=== PATIENT | female | born 1965 | race Caucasian/White ===

== ENCOUNTER → 2018-06-28 08:15 | Outpatient (CLI) | payer BC, SELFPAY ==
--- NOTE | 2018-06-28 08:19 | MM_ITS ---
MM Dig screening mamm BI w/CAD ORDERING PHYSICIAN : Ruth Garcia PATIENT AGE: 53 years GENDER: Female COMPARISON: June 2011, December 2013, August 2016 bilateral mammogram INDICATION: Routine SCREENING mammogram. 53-year-old. No hormones. No new complaints Previous left lumpectomy-history sheet suggest 2005 TECHNIQUE: Standard CC and MLO images were obtained. R2 CAD reviewed. FINDINGS: Low-density breast with minimal residual fibroglandular elements & noting progressive fatty replacement particularly e. However I see no significant new findings. No dominant mass nor suspicious calcifications RIGHT BREAST:No new areas of concern LEFT BREAST:No new areas of significant concern. The prominent dense calcification at the inferior deep left breast is again noted from the previous lumpectomy. There is measuring up to nearly 20 mm x 6.5 mm and basically unchanged since recent years comparison studies.. IMPRESSION: ......... Stable bilateral mammogram. No significant new findings. Stable dense calcification at the previous lumpectomy site at the left breast again noted BI-RADS Category: 2 Benign Finding(s) RECOMMENDED FOLLOW-UP: 1YR 1 YEAR FOLLOW-UP (A letter has been sent to the patient regarding results of the study.)
[2018-06-28 09:57] LABS: Basophils % 0.5 % (0.1-2.0); Hematocrit 41.4 % (37.0-47.0); Hemoglobin 13.9 g/dL (12.2-16.2); Lymphocytes # 1.5 K/mm3 (0.7-4.5); Mean Corpuscular HGB Conc 33.5 g/dL (31.8-35.4); Mean Corpuscular Hemoglobin 32.3 pg (27.0-31.2); Mean Corpuscular Volume 96.4 fl (81-99); Mean Platelet Volume 10.1 fl (7.4-10.4); Monocytes # 0.2 K/mm3 (0.1-1.0); Neutrophils % 53.4 % (37.0-80.0); Platelet Count 173 K/mm3 (142-424); Red Blood Count 4.29 M/mm3 (4.20-5.40); Red Cell Distribution Width 12.9 % (11.5-17.5); White Blood Count 3.8 K/mm3 (4.8-10.8)
[2018-06-28 11:41] LABS: Alanine Aminotransferase 43 U/L (12-78); Albumin Level 3.9 gm/dL (3.4-5.0); Albumin/Globulin Ratio 1.2 (1.1-1.8); Alkaline Phosphatase 104 U/L (46-116); Aspartate Amino Transferase 28 U/L (15-37); Bilirubin,Total 0.5 mg/dL (0.2-1.0); Blood Urea Nitrogen 10 mg/dL (7-18); Calcium 9.9 mg/dL (8.5-10.1); Carbon Dioxide 30 mmol/L (21.0-32.0); Chloride 104 mmol/L (98-107); Chol/HDL Ratio 2.7 (1-3.5); Cholesterol 268 mg/dL (140-200); Creatinine,Serum 0.67 mg/dL (0.55-1.02); Estimated Glomerular Filt Rate 92 ml/min (>60); GFR (African American) 111 ML/MIN (>60); Globulin 3.2 gm/dl (1.3-3.2); Glucose 101 mg/dL (74-106); HDL Cholesterol 100 mg/dL (29-89); LDL Cholesterol 151 mg/dL (0-130); Sodium 143 mmol/L (136-145); Thyroid Stimulating Hormone 2.29 uIU/ml (0.358-3.740); Total Protein,Serum 7.1 gm/dL (6.4-8.2); Triglycerides 83 mg/dL (30-200); VLDL Cholesterol 17 mg/dL (0-40)
[2018-06-30 03:45] LABS: Vitamin B12 256 pg/mL (232-1245); Vitamin D 25 Hydroxy 25.1 ng/mL (30.0-100.0)
== END ==
PROVIDERS: PCP Nurse Practitioner Family; Visit Provider Nurse Practitioner Family
DX: Z00.00 Encounter for general adult medical examination without abnormal findings (principal); Z12.31 Encounter for screening mammogram for malignant neoplasm of breast
CPT/HCPCS: 36415; 77067; 80053; 80061; 82607; 82652; 84443; 85025

== ENCOUNTER → 2018-10-09 13:46 | Outpatient (POV) | payer BC, SELFPAY | PROVIDERS: Visit Provider Dermatology | DX: Z00.00 Encounter for general adult medical examination without abnormal findings (principal) ==

== ENCOUNTER → 2019-11-05 08:12 | Outpatient (POV) | payer BC, SELFPAY | PROVIDERS: PCP Family Medicine; Visit Provider Dermatology | DX: Z00.00 Encounter for general adult medical examination without abnormal findings (principal) ==

== ENCOUNTER 2019-12-25 06:53 | Emergency (ER) | payer BC, SELFPAY ==
[2019-12-25 06:58] VITALS: BP 177/85; PULSE 86; RESP 16; TEMP 36.7; O2SAT 97; BMI 28.1
[2019-12-25 07:19] LABS: Microscopic, Urine URINE MICROSCOPIC (MICROSCOPIC)
[2019-12-25 07:22] LABS: Appearance,Urine CLEAR (Clear); Blood, Urine Negative (Negative); Color,Urine DK YELLOW (Yellow); Glucose,Urine (UA) Negative (Negative); Ketones,Urine Negative (Negative); Leukocyte Esterase,Urine TRACE (Negative); Nitrate,Urine Negative (Negative); PH,Urine 6.5 (5.0-8.5); Protein,Urine Negative (Negative); Urobilinogen,Urine 0.2 EU/dl (0.2)
[2019-12-25 07:34] LABS: Bilirubin,Urine Negative (Negative)
--- NOTE | 2019-12-25 07:39 | CT_ITS ---
PROCEDURE: CT ABDOMEN PELVIS W CON CLINICAL INDICATION: n/v/d Abdominal pain with nausea vomiting and diarrhea COMPARISON: [facility] MM Dig screening mamm BI w/CAD from 06/28/2018 TECHNIQUE: IV Contrast: 75ML OPTIRAY 350 Oral Contrast None Axial images obtained with sagittal and coronal reformats. All CT scans at the facility use one or more dose reduction, viz: automated exposure control, ma/kV adjustment per patient size (including targeted exams where dose is matched to indication, i.e. head), or iterative reconstruction technique. FINDINGS: LOWER THORAX: There is dense calcification in the left breast curvilinear in nature ABDOMEN & PELVIS: Prior cholecystectomy. Mild biliary ectasia. The spleen, adrenal glands, and pancreas have an unremarkable appearance. There is mild ectasia of the ureters on both sides but no obvious ureteral calculi. No calculi evident within the urinary bladder. Unremarkable appendix. No intestinal obstruction or free air. No pelvic mass abnormal fluid collection or focal inflammatory change of the pelvis. There is mild thickening of the colon involving the ascending, transverse, and proximal descending colon. This is nonspecific and could be due to colitis or nondistention. No acute bony findings. There is mild degenerative disc disease at L5-S1 with partially calcified bulging disc. IMPRESSION: 1. Mild thickening of the ascending and transverse and proximal descending colon which could be due to nondistention or colitis. 2. Minimal ectasia of the ureters on both sides of questionable clinical significance. Dictated by: Tra Christina MD 12/25/2019 08:45 Tra Christina MD in [place] 12/25/2019 08:45
[2019-12-25 07:49] LABS: Bacteria,Urine 1+ /lpf
[2019-12-25 07:52] LABS: Chloride 103 mmol/L (98-107)
[2019-12-25 07:53] LABS: Sodium 142 mmol/L (136-145)
[2019-12-25 07:54] LABS: Basophils % 0.3 % (0.1-2.0); Eosinophils % 0.4 % (0.1-12.0); Hematocrit 43.8 % (37.0-47.0); Hemoglobin 15.3 g/dL (12.2-16.2); Lymphocytes # 1.4 K/mm3 (0.7-4.5); Lymphocytes % 17.9 % (10-50); Mean Corpuscular HGB Conc 34.9 g/dL (31.8-35.4); Mean Corpuscular Hemoglobin 32.8 pg (27.0-31.2); Mean Corpuscular Volume 94.1 fl (81-99); Mean Platelet Volume 9.9 fl (7.4-10.4); Monocytes # 0.3 K/mm3 (0.1-1.0); Monocytes % 3.6 % (1.7-9.3); Neutrophils # 6.2 K/mm3 (1.8-7.8); Neutrophils % 77.9 % (37.0-80.0); Platelet Count 172 K/mm3 (142-424); Red Blood Count 4.65 M/mm3 (4.20-5.40); Red Cell Distribution Width 12.8 % (11.5-17.5); White Blood Count 7.9 K/mm3 (4.8-10.8)
[2019-12-25 07:55] LABS: Alanine Aminotransferase 34 U/L (12-78); Alkaline Phosphatase 92 U/L (38-126); Aspartate Amino Transferase 45 U/L (14-36); Blood Urea Nitrogen 10 mg/dl (7-17); Creatinine Clearance Estimated 107 mL/min (50-200); Estimated Glomerular Filt Rate 87 ml/min (>60); GFR (African American) 105 ML/MIN (>60)
[2019-12-25 07:56] LABS: Albumin Level 4.7 g/dl (3.5-5.0); Albumin/Globulin Ratio 1.5 (1.1-1.8); Calcium 10.3 mg/dl (8.4-10.2); Carbon Dioxide 30 mmol/L (22.0-30.0); Globulin 3.2 g/dL (1.3-3.2); Glucose 135 mg/dl (74-100); Total Protein,Serum 7.9 g/dl (6.3-8.2)
[2019-12-25 07:58] VITALS: BP 172/71; PULSE 81; O2SAT 100
[2019-12-25 08:02] LABS: C-Reactive Protein 0.5 mg/L (0-4)
--- NOTE | 2019-12-25 08:06 | HMH.EDGENADL ---
ED Disposition Clinical Impression: Hypokalemia Sinusitis Qualifiers: Sinusitis location: unspecified location Chronicity: acute Recurrence: not specified as recurrent Qualified Code(s): J01.90 - Acute sinusitis, unspecified Urinary tract infection Qualifiers: Urinary tract infection type: acute cystitis Hematuria presence: without hematuria Qualified Code(s): N30.00 - Acute cystitis without hematuria Nausea and vomiting Qualifiers: Vomiting type: unspecified Vomiting Intractability: non-intractable Qualified Code(s): R11.2 - Nausea with vomiting, unspecified Diarrhea Qualifiers: Diarrhea type: unspecified type Qualified Code(s): R19.7 - Diarrhea, unspecified Disposition: Home, Self-Care Condition on Discharge: Good Instructions: DI for Diarrhea and Traveler's Diarrhea -- Adult, DI for Diarrhea and Traveler's Diarrhea -- Child, DI for Nausea -- Adult, DI for Nausea -- Child Prescriptions: Cefdinir [Omnicef 300mg Capsule] 300 mg PO BID #20 cap Transmission Status: Pending to [facility] #[id number] Ondansetron [Zofran 4mg ODT] 4 mg PO Q6 PRN #9 tab.rapdis PRN Reason: Nausea Referrals: Jerod Scott MD [Primary Care Provider] - - Critical Care Critical Care Time: No Attestation: On 12/25/19, the high probability of a clinically significant, sudden or life threatening deterioration of the following system(s) required my full and direct attention, intervention and personal management. The time I documented below is in addition to time spent performing reported procedures but includes the following listed in this critical care notation. Medical Decision Making - Medical Records Medical records reviewed: Yes: I reviewed the patient's medical records. - Dave Inquiry Pt receiving controlled substance: No Vital Signs: 12/25/19 06:58 12/25/19 07:58 12/25/19 08:51 Temperature 98.1 F Temperature Source Oral Pulse Rate [Right Brachial] 86 841 H 88 Respiratory Rate 16 20 Blood Pressure [Right Arm] 177/85 H 172/71 H 156/90 H Blood Pressure Mean [Right Arm] 115 104 112 Blood Pressure Source [Right Arm] Automatic Cuff Automatic Cuff Automatic Cuff Blood Pressure Position [Right Arm] Sitting Sitting Sitting 02 Sat by Pulse Oximetry 97 100 98 Oxygen Delivery Method Room Air Room Air - Lab Data Lab Results 12/25/19 07:05: Urine Color Dk yellow, Urine Appearance Clear, Urine pH 6.5, Ur Specific [place] 1.020, Urine Protein Negative, Urine Glucose (UA) Negative, Urine Ketones Negative, Urine Blood Negative, Urine Nitrate Negative, Urine Bilirubin Negative, Urine Urobilinogen 0.2, Ur Leukocyte Esterase Trace, Urine RBC 3-5, Urine WBC 5-10, Ur Squamous Epith Cells 5-10, Urine Bacteria 1+ 12/25/19 07:15: WBC 7.9, RBC 4.65, Hgb 15.3, Hct 43.8, MCV 94.1, MCH 32.8 H, MCHC 34.9, RDW 12.8, Plt Count 172, MPV 9.9, Neut % (Auto) 77.9, Lymph % (Auto) 17.9, [place] % (Auto) 3.6, Eos % (Auto) 0.4, Baso % (Auto) 0.3, Neut # (Auto) 6.2, Lymph # (Auto) 1.4, [place] # (Auto) 0.3, Eos # (Auto) 0.0, Baso # (Auto) 0.0 12/25/19 07:15: Sodium 142, Potassium 3.0 L, Chloride 103, Carbon Dioxide 30, Anion Gap 12.0, BUN 10, Creatinine 0.70, Estimated Creat Clear 107, Estimated GFR 87, Est GFR ( Amer) 105, Glucose 135 H, Calcium 10.3 H, Total Bilirubin 1.0, AST 45 H, ALT 34, Alkaline Phosphatase 92, C-Reactive Protein 0.5, Total Protein 7.9, Albumin 4.7, Globulin 3.2, Albumin/Globulin Ratio 1.5 12/25/19 07:15: Influenza Type A Ag Negative, Influenza Type B Ag Negative 12/25/19 07:15: Group A Strep Rapid Negative 12/25/19 07:15: Lipase 133 Result diagrams: 12/25/19 07:15 12/25/19 07:15 Orders (Tests/Meds): ED MEDICATIONS Discontinued Medications Generic Name Dose Route Start Last Admin Trade Name Freq PRN Reason Stop Dose Admin Acetaminophen 1,000 mg 12/25/19 07:49 12/25/19 08:03 Tylenol 500mg Tablet PO 12/25/19 07:50 1,000 mg ONCE ONE Administration Sodium Chloride 1,000 mls @ 999 mls/hr
[2019-12-25 08:17] LABS: Strep Scrn Group A (Rapid) Negative (Negative)
[2019-12-25 08:51] VITALS: BP 156/90; PULSE 88; RESP 20; O2SAT 98
--- NOTE | 2019-12-25 08:59 | PC.NURSE ---
pt ambulating to the bathroom
[2019-12-25 09:02] LABS: Lipase 133 U/L (23-300)
[2019-12-25 09:21] VITALS: BP 156/90; PULSE 88; RESP 15; TEMP 36.7; O2SAT 98
== END 2019-12-25 09:27 | disposition home or self-care (01) ==
PROVIDERS: Emergency Provider Emergency Medicine; PCP Family Medicine
DX: K52.9 Noninfective gastroenteritis and colitis, unspecified (principal); E87.6 Hypokalemia; J01.00 Acute maxillary sinusitis, unspecified; N30.00 Acute cystitis without hematuria
CPT/HCPCS: 74177; 80053; 81001; 83690; 85025; 86140; 87275; 87276; 87430; 96365; 96375; 99284; J2405; Q9967

== ENCOUNTER 2019-12-26 10:32 | Observation (INO) | payer BC, SELFPAY ==
[2019-12-26] VITALS (8 sets, daily range): BP systolic 134–186; BP diastolic 69–97; PULSE 64–102; RESP 17–20; TEMP 36.6–37.1; O2SAT 93–100; BMI 28.3; BMI 29.2
[2019-12-26 10:54] LABS: Basophils % 0.4 % (0.1-2.0); Eosinophils % 0.4 % (0.1-12.0); Hematocrit 43.3 % (37.0-47.0); Hemoglobin 14.9 g/dL (12.2-16.2); Lymphocytes # 1.2 K/mm3 (0.7-4.5); Lymphocytes % 15.6 % (10-50); Mean Corpuscular HGB Conc 34.3 g/dL (31.8-35.4); Mean Corpuscular Hemoglobin 32.8 pg (27.0-31.2); Mean Corpuscular Volume 95.8 fl (81-99); Monocytes # 0.2 K/mm3 (0.1-1.0); Monocytes % 2.9 % (1.7-9.3); Neutrophils # 6.4 K/mm3 (1.8-7.8); Neutrophils % 80.8 % (37.0-80.0); Platelet Count 150 K/mm3 (142-424); Red Blood Count 4.53 M/mm3 (4.20-5.40); Red Cell Distribution Width 12.7 % (11.5-17.5)
[2019-12-26 11:06] LABS: Alanine Aminotransferase 41 U/L (12-78); Albumin Level 4.8 g/dl (3.5-5.0); Albumin/Globulin Ratio 1.5 (1.1-1.8); Alkaline Phosphatase 106 U/L (38-126); Anion Gap 12.4 mEq/L (5-15); Aspartate Amino Transferase 57 U/L (14-36); Bilirubin,Total 0.9 mg/dl (0.2-1.3); Blood Urea Nitrogen 14 mg/dl (7-17); Calcium 10.7 mg/dl (8.4-10.2); Carbon Dioxide 30 mmol/L (22.0-30.0); Chloride 102 mmol/L (98-107); Creatinine Clearance Estimated 83 mL/min (50-200); Estimated Glomerular Filt Rate 65 ml/min (>60); GFR (African American) 79 ML/MIN (>60); Globulin 3.1 g/dL (1.3-3.2); Glucose 105 mg/dl (74-100); Potassium 3.4 mmoL/L (3.5-5.1); Sodium 141 mmol/L (136-145); Total Protein,Serum 7.9 g/dl (6.3-8.2)
[2019-12-26 11:47] LABS: Lactic Acid 0.7 mmol/L (0.7-2.1)
[2019-12-26 11:53] LABS: Coronavirus 19 IgG Antibody Negative (Negative); Coronavirus 19 IgM Antibody Negative (Negative)
--- NOTE | 2019-12-26 12:07 | HMH.EDNVD ---
ED Disposition Clinical Impression: Gastroenteritis, Dehydration, Intractable nausea and vomiting, Hypokalemia due to excessive gastrointestinal loss of potassium Disposition: Admitted as Observation Condition on Discharge: Good Instructions: DI for Nausea -- Adult, DI for Nausea -- Child, DI for Diarrhea and Traveler's Diarrhea -- Adult, DI for Diarrhea and Traveler's Diarrhea -- Child Referrals: Bebo Coughlin MD [Primary Care Provider] - - Critical Care Critical Care Time: No Attestation: On 12/26/19, the high probability of a clinically significant, sudden or life threatening deterioration of the following system(s) required my full and direct attention, intervention and personal management. The time I documented below is in addition to time spent performing reported procedures but includes the following listed in this critical care notation. Medical Decision Making - Medical Records Medical records reviewed: Yes: I reviewed the patient's medical records. - Dave Inquiry Pt receiving controlled substance: No Vital Signs: 12/26/19 10:41 12/26/19 11:01 Temperature 98.3 F Temperature Source Oral Pulse Rate [Radial] 102 H 91 H Respiratory Rate 20 Blood Pressure [Right Arm] 186/97 H 185/84 H Blood Pressure Mean [Right Arm] 126 117 Blood Pressure Source [Right Arm] Automatic Cuff Automatic Cuff Blood Pressure Position [Right Arm] Sitting Sitting 02 Sat by Pulse Oximetry 100 99 Oxygen Delivery Method Room Air Room Air - Lab Data Lab results reviewed: Yes: I reviewed the patient's lab results. Lab Results 12/26/19 10:15: SARS-CoV-2 IgG Ab (Rapid) Negative, SARS-CoV-2 IgM Ab (Rapid) Negative 12/26/19 10:50: WBC 8.0, RBC 4.53, Hgb 14.9, Hct 43.3, MCV 95.8, MCH 32.8 H, MCHC 34.3, RDW 12.7, Plt Count 150, MPV 10.0, Neut % (Auto) 80.8 H, Lymph % (Auto) 15.6, [place] % (Auto) 2.9, Eos % (Auto) 0.4, Baso % (Auto) 0.4, Neut # (Auto) 6.4, Lymph # (Auto) 1.2, [place] # (Auto) 0.2, Eos # (Auto) 0.0, Baso # (Auto) 0.0 12/26/19 10:50: Sodium 141, Potassium 3.4 L, Chloride 102, Carbon Dioxide 30, Anion Gap 12.4, BUN 14 D, Creatinine 0.90 D, Estimated Creat Clear 83, Estimated GFR 65, Est GFR ( Amer) 79 D, Glucose 105 H, Calcium 10.7 H, Total Bilirubin 0.9, AST 57 H D, ALT 41, Alkaline Phosphatase 106, Total Protein 7.9, Albumin 4.8, Globulin 3.1, Albumin/Globulin Ratio 1.5 12/26/19 11:20: Lactate 0.7 Result diagrams: 12/26/19 10:50 12/26/19 10:50 Orders (Tests/Meds): ED MEDICATIONS Discontinued Medications Generic Name Dose Route Start Last Admin Trade Name Jayda PRN Reason Stop Dose Admin Hydromorphone HCl 0.5 mg 12/26/19 11:24 12/26/19 11:24 Dilaudid 2mg/Ml Syringe IV 12/26/19 11:25 0.5 mg ONCE ONE Administration Sodium Chloride 1,000 mls @ 999 mls/hr 12/26/19 11:00 12/26/19 10:53 Sod Chlor 0.9% 1000ml Bag IV 12/26/19 12:00 999 mls/hr .Q1H1M DONNIE Administration Ondansetron HCl 4 mg 12/26/19 10:51 12/26/19 10:52 Zofran 4mg/2ml Vial IV 12/26/19 10:52 4 mg ONCE ONE Administration Medical Decision Narrative: Over the course of her visit here in the emergency department patient's symptoms did improve with IV antiemetics and IV fluids. Laboratory data looks better than yesterday. Her potassium was 3.0 yesterday today at 3.4. Patient was also diagnosed hypokalemia yesterday as well. I did speak with Dr. Coughlin he agreed for admission for at least a few hours or maybe overnight for fluid hydration and antiemetic therapy. Nausea/Vomiting/Diarrhea HPI - General Chief complaint: Nausea/Vomiting/Diarrhea Stated complaint: abdominal pain vomitting diarrhea Time Seen by Provider: 12/26/19 12:08 Mode of Arrival: Ambulatory Limitations: No Limitations Description of Symptoms (Recalled from ER Triage Doc. by RN): States she was seen here in the ER yesterday for diarrhea, vomiting, and cramping. Was diagnosed with a sinus infection and kidney infection, however she states
[2019-12-26 12:41] LABS: Microscopic, Urine URINE MICROSCOPIC (MICROSCOPIC)
[2019-12-26 12:47] LABS: Appearance,Urine CLEAR (Clear); Bilirubin,Urine Negative (Negative); Blood, Urine Negative (Negative); Color,Urine YELLOW (Yellow); Glucose,Urine (UA) Negative (Negative); Ketones,Urine 1+ (Negative); Leukocyte Esterase,Urine TRACE (Negative); Nitrate,Urine Negative (Negative); PH,Urine 6.5 (5.0-8.5); Protein,Urine Negative (Negative); Urobilinogen,Urine 0.2 EU/dl (0.2)
--- NOTE | 2019-12-26 12:49 | PC.NURSE ---
Pt arrived to the floor at this time ,
[2019-12-26 12:58] LABS: Bacteria,Urine 1+ /lpf; RBC,Urine Occasional #/hpf (0-3)
--- NOTE | 2019-12-26 13:31 | P.CONPHA_ITS ---
[facility] Pharmacy VTE Monitoring - Patient Demographics Admission date: 12/26/19 Report Date: 12/26/19 Time: 13:32 Allergies/Adverse Reactions: Patient Allergies codeine Allergy (Verified 12/26/19 13:02) guaifenesin Allergy (Verified 12/26/19 13:02) Height: 1.63 m Weight: 77.383 kg Patient Problems: Current Active Problems Gastroenteritis (Acute) Dehydration (Acute) Intractable nausea and vomiting (Acute) Hypokalemia due to excessive gastrointestinal loss of potassium (Acute) - VTE Risk Labs: VTE Related Lab Results Hgb 14.9 g/dL (12.2-16.2) 12/26/19 10:50 Hct 43.3 % (37.0-47.0) 12/26/19 10:50 Plt Count 150 K/mm3 (142-424) 12/26/19 10:50 BUN 14 mg/dl (7-17) D 12/26/19 10:50 Creatinine 0.90 mg/dl (0.52-1.04) D 12/26/19 10:50 Estimated Creat Clear 83 mL/min (50-200) 12/26/19 10:50 Was VTE Risk Assessment Performed: Yes VTE Score: 2 VTE Risk Level: Very Low Risk - Prophylaxis VTE Prophylaxis Ordered?: Yes Types of VTE Prophylaxis: TEDS Knee High Location of Applied Device: Bilateral Lower Extremeties
--- NOTE | 2019-12-26 16:03 | HMH.HP ---
*Admission Date: 12/26/19 *Chief complaint: Nausea and diarrhea *History of present illness: 54-year-old female presented to the emergency department for the second time in about 24 hours with complaints of persistent nausea which is leading to retching and dry heaving with diarrhea. Onset of illness was December 21. Patient blames symptoms on the action of taking her medicines on an empty stomach. She claims she rarely does this but when she did this on Monday it immediately triggered onset of nausea and dry heaving. Patient later developed diarrhea and symptoms have now persisted for 4 days. She believes she has had fevers but has not checked. She denies any runny nose, sneezing, sore throat, loss of smell or taste, cough. She was seen in the emergency department yesterday with essentially normal work-up save for some very mild findings consistent with possible colitis. Patient was discharged to home. Patient returned to the emergency department late this morning after symptoms began intensifying. She has been admitted for observation with IV fluids and antiemetics. [facility] History I have reviewed the patient's past medical history: Yes Medical History: Reports:: Cancer (Breast), Hyperlipidemia Denies:: Diabetes Mellitus Type 1, Diabetes Mellitus Type 2, MRSA *Have you ever received a pneumonia vaccine?: No *Have you received a flu vaccine this season?: No Other Surgeries: Yes: Cancer Surgery, Cholecystectomy, Tubal Ligation Amputation: No Fractures: No - *Social History Last grade of school completed: 9th or 10th Smoking Status: Never smoker Alcohol Intake: current Alcohol Intake Frequency:: holidays/special occasions only *Occupational Status:: unemployed Housing: house Household Members: spouse *Travel in the last 8 weeks: None Family Hx:: Diabetes Review of Systems - Review of Systems Review of systems:: pertinent systems reviewed and negative unless documented below Meds Home Medications Medication Instructions Recorded Confirmed Type gabapentin 100 mg capsule 100 mg PO BID 04/02/19 12/26/19 History Ondansetron [Zofran 4mg ODT] 4 mg PO Q6 PRN #9 tab.rapdis 12/25/19 12/26/19 Rx Cefdinir [Omnicef 300mg Capsule] 300 mg PO BID 12/26/19 12/26/19 History Montelukast Sodium [Singulair] 10 mg PO PM 12/26/19 12/26/19 History Simvastatin [Zocor 10mg] 10 mg PO HS 12/26/19 12/26/19 History Allergies Allergy/AdvReac Type Severity Reaction Status Date / Time codeine Allergy Verified 12/26/19 13:02 guaifenesin Allergy Verified 12/26/19 13:02 Exam Vital signs and Labs for Last 24 Hours: Temp Pulse Resp BP Pulse Ox 98.2 F 69 18 157/78 H 100 12/26/19 13:00 12/26/19 13:00 12/26/19 13:00 12/26/19 13:00 12/26/19 13:00 Laboratory Results - last 24 hr 12/26/19 10:15: SARS-CoV-2 IgG Ab (Rapid) Negative, SARS-CoV-2 IgM Ab (Rapid) Negative 12/26/19 10:50: WBC 8.0, RBC 4.53, Hgb 14.9, Hct 43.3, MCV 95.8, MCH 32.8 H, MCHC 34.3, RDW 12.7, Plt Count 150, MPV 10.0, Neut % (Auto) 80.8 H, Lymph % (Auto) 15.6, [place] % (Auto) 2.9, Eos % (Auto) 0.4, Baso % (Auto) 0.4, Neut # (Auto) 6.4, Lymph # (Auto) 1.2, [place] # (Auto) 0.2, Eos # (Auto) 0.0, Baso # (Auto) 0.0 12/26/19 10:50: Sodium 141, Potassium 3.4 L, Chloride 102, Carbon Dioxide 30, Anion Gap 12.4, BUN 14 D, Creatinine 0.90 D, Estimated Creat Clear 83, Estimated GFR 65, Est GFR ( Amer) 79 D, Glucose 105 H, Calcium 10.7 H, Total Bilirubin 0.9, AST 57 H D, ALT 41, Alkaline Phosphatase 106, Total Protein 7.9, Albumin 4.8, Globulin 3.1, Albumin/Globulin Ratio 1.5 12/26/19 11:20: Lactate 0.7 12/26/19 12:30: Urine Color Yellow, Urine Appearance Clear, Urine pH 6.5, Ur Specific [place] 1.010, Urine Protein Negative, Urine Glucose (UA) Negative, Urine Ketones 1+, Urine Blood Negative, Urine Nitrate Negative, Urine Bilirubin Negative, Urine Urobilinogen 0.2, Ur Leukocyte Esterase Trace, Urine RBC Occasional, Ur Squamous Epith Cells 5-10, Urine Bacteria 1+
--- NOTE | 2019-12-26 16:15 | PC.NURSE ---
Pt was a new admit this shift from the ER. Pleasant and cooperative. A&O X4. No complaints of N/V/D since arrival to the unit around 1300. Pt complained of a headache and received Tylenol per MAR with favorable results. Lungs CTA. No edema noted. Skin is C/D/I. TEDDY hose in place to BLE. 20 G peripheral IV in place to the RT AC is patent and infusing NS @ 100 ML/HR. Pt ambulates independently to/from the bathroom and voids without issue. No BM thus far. VSS. Call light within reach. Will continue to monitor.
[2019-12-27 04:00] VITALS: BP 143/84; PULSE 60; RESP 18; TEMP 36.5; O2SAT 97
--- NOTE | 2019-12-27 04:38 | PC.NURSE ---
Addendum entered by Susana Hanna RN 12/27/19 05:02: pt did report a headache when she woke up this morning, treated per JUN Original Note: shift summary, pt has rested well t/o shift, reports one BM this shift that was more formed than previous BMs, no complaints of n/v
[2019-12-27 05:01] VITALS: BMI 29.4
--- NOTE | 2019-12-27 05:50 | PC.NURSE ---
Addendum entered by Susana Hanna RN 12/27/19 06:41: pt also reports that she has now thrown up Original Note: pt has reported another episode of loose stool and states she feels nauseous, pt treated per MAR
--- NOTE | 2019-12-27 07:02 | HMH.ACPN2 ---
Internal Medicine - PN: Subj *Date: 12/27/19 *Time: 07:02 Interval history: Patient did well overnight until this morning when she reported acute onset of nausea with an unwitnessed episode of vomiting and another loose stool. She did not have any fevers. This morning she reports her abdomen is sore . Exam Vital signs and Labs for Last 24 Hours: Temp Pulse Resp BP Pulse Ox 97.7 F 60 18 143/84 H 97 12/27/19 04:00 12/27/19 04:00 12/27/19 04:00 12/27/19 04:00 12/27/19 04:00 Laboratory Results - last 24 hr 12/26/19 10:15: SARS-CoV-2 IgG Ab (Rapid) Negative, SARS-CoV-2 IgM Ab (Rapid) Negative 12/26/19 10:50: WBC 8.0, RBC 4.53, Hgb 14.9, Hct 43.3, MCV 95.8, MCH 32.8 H, MCHC 34.3, RDW 12.7, Plt Count 150, MPV 10.0, Neut % (Auto) 80.8 H, Lymph % (Auto) 15.6, [place] % (Auto) 2.9, Eos % (Auto) 0.4, Baso % (Auto) 0.4, Neut # (Auto) 6.4, Lymph # (Auto) 1.2, [place] # (Auto) 0.2, Eos # (Auto) 0.0, Baso # (Auto) 0.0 12/26/19 10:50: Sodium 141, Potassium 3.4 L, Chloride 102, Carbon Dioxide 30, Anion Gap 12.4, BUN 14 D, Creatinine 0.90 D, Estimated Creat Clear 83, Estimated GFR 65, Est GFR ( Amer) 79 D, Glucose 105 H, Calcium 10.7 H, Total Bilirubin 0.9, AST 57 H D, ALT 41, Alkaline Phosphatase 106, Total Protein 7.9, Albumin 4.8, Globulin 3.1, Albumin/Globulin Ratio 1.5 12/26/19 11:20: Lactate 0.7 12/26/19 12:30: Urine Color Yellow, Urine Appearance Clear, Urine pH 6.5, Ur Specific [place] 1.010, Urine Protein Negative, Urine Glucose (UA) Negative, Urine Ketones 1+, Urine Blood Negative, Urine Nitrate Negative, Urine Bilirubin Negative, Urine Urobilinogen 0.2, Ur Leukocyte Esterase Trace, Urine RBC Occasional, Ur Squamous Epith Cells 5-10, Urine Bacteria 1+ I & O for Last 24 hours: Intake & Output 12/24/19 12/25/19 12/26/19 12/27/19 11:59 11:59 11:59 11:59 Intake Total 2003 Balance 2003 Weight 165 lb 172 lb 2 oz Narrative: Patient looks comfortable but a little anxious. Lungs are clear. Heart has a regular rate and rhythm. Abdomen is soft, nontender, nondistended with active bowel sounds. Assessment and Plan (1) Colitis Current visit: Yes Status: Acute Category: Medical Code(s): K52.9 - Noninfective gastroenteritis and colitis, unspecified (2) Hypokalemia Current visit: No Status: Acute Category: Medical Code(s): E87.6 - Hypokalemia - Assessment and plan all Dx Assessment and Plan for all problems:: Await labs this morning. Continue clear liquid diet. Patient will be reassessed this afternoon. Try to reassure patient this is an illness that will pass given time. Phenergan will be ordered for nausea in addition to her Zofran
--- NOTE | 2019-12-27 07:53 | HMH.PHAINT ---
MEDICATION RECONCILIATION COMPLETED ON PATIENT USING EXTERNAL FILL HISTORY FROM PHARMACY. -VAN FARLEY, RANDYD
[2019-12-27 08:00] VITALS: BP 165/87; PULSE 79; RESP 19; TEMP 36.9; O2SAT 100
[2019-12-27 09:31] LABS: Alanine Aminotransferase 32 U/L (12-78); Albumin Level 4.2 g/dl (3.5-5.0); Alkaline Phosphatase 82 U/L (38-126); Anion Gap 6.5 mEq/L (5-15); Aspartate Amino Transferase 49 U/L (14-36); Bilirubin,Direct 0.1 mg/dl (0.0-0.4); Bilirubin,Indirect 0.6 mg/dL (0.0-0.9); Bilirubin,Total 0.7 mg/dl (0.2-1.3); Bilirubin,Unconjugated 0.6 mg/dL (0.0-1.1); Blood Urea Nitrogen 5 mg/dl (7-17); Calcium 9.8 mg/dl (8.4-10.2); Carbon Dioxide 31 mmol/L (22.0-30.0); Chloride 108 mmol/L (98-107); Creatinine Clearance Estimated 131 mL/min (50-200); Estimated Glomerular Filt Rate 104 ml/min (>60); GFR (African American) 126 ML/MIN (>60); Glucose 147 mg/dl (74-100); Potassium 3.5 mmoL/L (3.5-5.1); Sodium 142 mmol/L (136-145); Total Protein,Serum 6.9 g/dl (6.3-8.2)
[2019-12-27 09:44] LABS: Basophils % 0.6 % (0.1-2.0); Eosinophils % 0.6 % (0.1-12.0); Hematocrit 37.8 % (37.0-47.0); Hemoglobin 14.1 g/dL (12.2-16.2); Lymphocytes % 22.5 % (10-50); Mean Corpuscular HGB Conc 37.2 g/dL (31.8-35.4); Mean Corpuscular Hemoglobin 34.1 pg (27.0-31.2); Mean Corpuscular Volume 91.8 fl (81-99); Mean Platelet Volume 9.4 fl (7.4-10.4); Monocytes # 0.2 K/mm3 (0.1-1.0); Monocytes % 4.4 % (1.7-9.3); Neutrophils # 3.1 K/mm3 (1.8-7.8); Neutrophils % 71.9 % (37.0-80.0); Platelet Count 127 K/mm3 (142-424); Red Blood Count 4.12 M/mm3 (4.20-5.40); Red Cell Distribution Width 12.6 % (11.5-17.5); White Blood Count 4.3 K/mm3 (4.8-10.8)
[2019-12-27 10:51] VITALS: BMI 29.3
[2019-12-27 16:00] VITALS: BP 149/80; PULSE 91; RESP 16; TEMP 36.9; O2SAT 98
--- NOTE | 2019-12-27 17:50 | PC.NURSE ---
PATIENT COMPLAINS OF NOT FEELING GOOD, COMPLAINS OF ALMOST THROWING UP AND FEELING THIS WAY FOR 6 DAYS. PATIENT STATED THAT SHE DOES NOT FEEL LIKE SHE IS BEING TREATED FOR HER ILLNESS, WANTS TO KNOW WHY SHE IS NOT ON ANTIBIOTICS AND WHY CAN'T SHE GO HOME AND DO THE SAME TREATMENT HERE. THIS RN EXPLAINED THAT PATIENT'S COLITIS IS NOT INFECTION BASED, THAT HER LABS ARE NORMAL FOR THE EXCEPTION OF POTASSIUM BEING LOW AND THAT HERE AT [facility] SHE IS BEING TREATED WITH MEDICATION VIA IV SINCE SHE FEELS NAUSEA WITH ORAL MEDICATIONS. THIS RN ALSO INQUIRED IF THE PATIENT HAS ANXIETY OR IS SHE HAS STRESS? PATIENT STATED SHE IS ALWAYS STRESSED AND ALWAYS WORRYING ABOUT SOMETHING. THIS RN EDUCATED PATIENT THAT STRESS CAN LEAD TO MANY ILLNESSES. THIS RN INQUIRED IF PATIENT WOULD LIKE A MEDICATION TO HELP WITH ANXIETY. PATIENT AGREED, THIS RN PHONED DR. YADAV. ORDERED A 1X DOSE OF 0.5 MG IV ATIVAN. THIS RN ADMINISTERED ATIVAN ALONG WITH PHENEGRAN. UPON ASSESSMENT. PATIENT STATED THAT SHE FEELS MORE CALM BUT THAT SHE IS STILL SICK. PATIENT ASKED WHEN WILL THIS GO AWAY. THIS RN EDUCATED PATIENT THAT EVERYONE'S BODY HEALS ON THEIR OWN TERMS. THERE IS NO CERTAIN ANSWER. THIS RN ENCOURAGED PATIENT TO CONTINUE TO REST HER BOWELS AND HER CONDITION WILL TAKE TIME TO HEAL. PATIENT VERBALIZED AN AGREEMENT. NO OTHER CONCERNS AT THIS TIME.
--- NOTE | 2019-12-27 19:07 | PC.NURSE ---
report given to eugenia
[2019-12-27 20:00] VITALS: BP 147/72; PULSE 77; RESP 16; TEMP 37.3; O2SAT 97
--- NOTE | 2019-12-28 02:26 | PC.NURSE ---
Pt is alert and oriented x4. Rested well with eyes closed t/o shift. No acute changes noted from previous shift. Denies abdominal pain when asked by this RN. Denies N/V/D. Tolerated RA well with no c/o soa. Bilateral breath sounds noted clear t/o upon auscultation. Bowel sounds x4 noted hyperactive. Tolerated clear liquid diet well with no new complaints. No edema noted. Independently amb to and from bathroom. VSS. Remains safe. Call light within reach. Will continue to monitor.
[2019-12-28 04:00] VITALS: BP 134/75; PULSE 71; RESP 18; TEMP 36.7; O2SAT 95
[2019-12-28 05:23] VITALS: BMI 29.0
[2019-12-28 07:31] VITALS: O2SAT 95
--- NOTE | 2019-12-28 07:54 | P.PN_ITS ---
Internal Medicine - PN: Subj *Date: 12/28/19 *Time: 07:54 Interval history: Patient has no complaints this morning. She tolerated a liquid supper yesterday evening and did not have any nausea, vomiting, diarrhea. Patient reports upon awakening this morning she had a small loose stool. Her breakfast tray has just arrived and she has had some apple juice without incident. She has not had any fevers overnight. She denies abdominal pain Exam Vital signs and Labs for Last 24 Hours: Temp Pulse Resp BP Pulse Ox 98.1 F 71 18 134/75 95 12/28/19 04:00 12/28/19 04:00 12/28/19 04:00 12/28/19 04:00 12/28/19 07:31 Laboratory Results - last 24 hr 12/27/19 08:45: WBC 4.3 L D, RBC 4.12 L, Hgb 14.1, Hct 37.8, MCV 91.8, MCH 34.1 H, MCHC 37.2 H, RDW 12.6, Plt Count 127 L, MPV 9.4, Neut % (Auto) 71.9, Lymph % (Auto) 22.5, [place] % (Auto) 4.4, Eos % (Auto) 0.6, Baso % (Auto) 0.6, Neut # (Auto) 3.1, Lymph # (Auto) 1.0, [place] # (Auto) 0.2, Eos # (Auto) 0.0, Baso # (Auto) 0.0 12/27/19 08:45: Sodium 142, Potassium 3.5, Chloride 108 H, Carbon Dioxide 31 H, Anion Gap 6.5, BUN 5 L D, Creatinine 0.60 D, Estimated Creat Clear 131, Estimated GFR 104, Est GFR ( Amer) 126 D, Glucose 147 H D, Calcium 9.8, Total Bilirubin 0.7, Direct Bilirubin 0.1, Conjugated Bilirubin 0.0, Indirect Bilirubin 0.6, Unconjugated Bilirubin 0.6, AST 49 H, ALT 32, Alkaline Phosphatase 82, Total Protein 6.9, Albumin 4.2 D I & O for Last 24 hours: Intake & Output 12/25/19 12/26/19 12/27/19 12/28/19 11:59 11:59 11:59 11:59 Intake Total 2003 1627 / 1627 Output Total Balance 2003 1626 / 1626 Weight 165 lb 171 lb 15.369 oz 170 lb - Constitutional no acute distress - *Routine Respiratory Exam Present: CTA bilaterally - *Routine Cardiovascular Exam Present: RRR - *Routine Abdominal Exam Present: soft, normoactive bowel sounds. Absent: tenderness Assessment and Plan (1) Colitis Current visit: Yes Status: Acute Category: Medical Code(s): K52.9 - Noninfective gastroenteritis and colitis, unspecified Patient is improving. We will assess how she tolerates her liquid diet this morning but I anticipate discharge later this morning. Prescription for Zofran will be sent to patient's pharmacy. Patient will follow-up in the office later in the week (2) Hypokalemia Current visit: No Status: Acute Category: Medical Code(s): E87.6 - Hypokalemia
--- NOTE | 2019-12-28 07:56 | HMH.DCSUM ---
General - General Admission date:: 12/26/19 Discharge date: 12/28/19 HPI HPI: 54-year-old female presented to the emergency department for the second time in about 24 hours with complaints of persistent nausea which is leading to retching and dry heaving with diarrhea. Onset of illness was December 21. Patient blames symptoms on the action of taking her medicines on an empty stomach. She claims she rarely does this but when she did this on Monday it immediately triggered onset of nausea and dry heaving. Patient later developed diarrhea and symptoms have now persisted for 4 days. She believes she has had fevers but has not checked. She denies any runny nose, sneezing, sore throat, loss of smell or taste, cough. She was seen in the emergency department yesterday with essentially normal work-up save for some very mild findings consistent with possible colitis. Patient was discharged to home. Patient returned to the emergency department late this morning after symptoms began intensifying. She has been admitted for observation with IV fluids and antiemetics. Hospital Course Hospital Course: Patient was admitted and placed on clear liquid diet and IV fluids. Patient seemed to do well immediately after admission but in the booking police officer following admission patient had an unwitnessed episode of vomiting with at least 2 loose stools. Patient then went 24 hours with being asymptomatic while on a liquid diet. She was given Zofran and Phenergan to use as needed for nausea. On the morning of December 27 patient had tolerated clear liquids without vomiting. She was discharged home. Patient will follow-up in the office on January 02 Objective Vital signs: Temp Pulse Resp BP Pulse Ox 98.1 F 71 18 134/75 95 12/28/19 04:00 12/28/19 04:00 12/28/19 04:00 12/28/19 04:00 12/28/19 07:31 Results Labs on day of discharge: Labs from last 24 hours 12/27/19 12/27/19 08:45 08:45 WBC 4.3 L D RBC 4.12 L Hgb 14.1 Hct 37.8 MCV 91.8 MCH 34.1 H MCHC 37.2 H RDW 12.6 Plt Count 127 L MPV 9.4 Neut % (Auto) 71.9 Lymph % (Auto) 22.5 [place] % (Auto) 4.4 Eos % (Auto) 0.6 Baso % (Auto) 0.6 Neut # (Auto) 3.1 Lymph # (Auto) 1.0 [place] # (Auto) 0.2 Eos # (Auto) 0.0 Baso # (Auto) 0.0 Sodium 142 Potassium 3.5 Chloride 108 H Carbon Dioxide 31 H Anion Gap 6.5 BUN 5 L D Creatinine 0.60 D Estimated Creat Clear 131 Estimated GFR 104 Est GFR ( Amer) 126 D Glucose 147 H D Calcium 9.8 Total Bilirubin 0.7 Direct Bilirubin 0.1 Conjugated Bilirubin 0.0 Indirect Bilirubin 0.6 Unconjugated Bilirubin 0.6 AST 49 H ALT 32 Alkaline Phosphatase 82 Total Protein 6.9 Albumin 4.2 D DS: Diagnosis - Discharge Diagnosis (1) Colitis Status: Acute (2) Hypokalemia Status: Acute Discharge Plan - Patient Discharge Instructions ACTIVITY: Continue current activity DIET: continue same diet Patient Instructions: Dehydration, DI for Dehydration -- Adult, DI for Viral Gastroenteritis -- Adult - Follow up Plan Follow up with: Ly Matson APRN [Nurse Practitioner] - 01/03/20 Disposition: Home, Self-Prison Medications: Home Medications Medication Instructions Recorded Confirmed Type gabapentin 100 mg capsule 200 mg PO BID 04/02/19 12/27/19 History Cefdinir [Omnicef 300mg Capsule] 300 mg PO BID 12/26/19 12/26/19 History Montelukast Sodium [Singulair] 10 mg PO HS 12/26/19 12/27/19 History Simvastatin [Zocor 10mg] 10 mg PO HS 12/26/19 12/26/19 History Ondansetron [Zofran 4mg ODT] 4 mg PO Q6 PRN #30 tab.rapdis 12/28/19 Rx Prescriptions/Medication Reconciliation: Continued gabapentin 100 mg capsule 200 mg PO BID Simvastatin [Zocor 10mg] 10 mg PO HS Ondansetron [Zofran 4mg ODT] 4 mg PO Q6 PRN #30 tab.rapdis PRN Reason: Nausea Montelukast Sodium [Singulair] 10 mg PO HS
[2019-12-28 07:58] VITALS: BP 138/89; PULSE 72; RESP 17; TEMP 36.7; O2SAT 97
--- NOTE | 2019-12-28 08:00 | PC.NURSE ---
PATIENT LYING IN BED A&O. NO C/O PAIN. PATIENT DOES COMPLAIN OF NAUSEA. PRN ZOFRAN ADMIN PER MAR. PATIENT ON CLEAR LIQUID DIET TOLERATING FAIR-PATIENT STATES SHE WOULD LIKE TO ADVANCE HER DIET TODAY IF POSSIBLE. MD YADAV ROUNDING-PLANS TO DISCHARGE PATIENT TODAY. SAFETY MEASURES IN PLACE. WILL CONTINUE TO MONITOR.
== END 2019-12-28 10:56 | disposition home or self-care (01) ==
LOC: ER 12:14 → 2ND 13:14
PROVIDERS: Admitting Provider Family Medicine; Emergency Provider Family Medicine; PCP Family Medicine; Visit Provider Family Medicine
DX: K52.9 Noninfective gastroenteritis and colitis, unspecified (principal); E87.6 Hypokalemia; E86.0 Dehydration; I10 Essential (primary) hypertension; E78.5 Hyperlipidemia, unspecified; Z79.899 Other long term (current) drug therapy; Z88.6 Allergy status to analgesic agent; Z85.3 Personal history of malignant neoplasm of breast; Z80.9 Family history of malignant neoplasm, unspecified; Z82.49 Family history of ischemic heart disease and other diseases of the circulatory system; Z88.8 Allergy status to other drugs, medicaments and biological substances
CPT/HCPCS: 36415; 80048; 80053; 80076; 81001; 83605; 85025; 86328; 96365; 96375; 96376; 99284; G0378; J2405

== ENCOUNTER 2020-06-04 15:23 | Emergency (ER) | payer BC, SELFPAY ==
[2020-06-04 15:25] VITALS: BP 166/79; PULSE 90; PULSE 99; RESP 18; TEMP 37.1; O2SAT 100; O2SAT 99; BMI 26.6
--- NOTE | 2020-06-04 15:45 | CT_ITS ---
Procedure: CT ABDOMEN PELVIS W CON Referring Doctor: Srinivasan Eugene Patient Age:55Y CLINICAL INDICATION: pain abdominal pain with history of diverticulitis COMPARISON: [facility] DIGITAL MAMM-SCREEN BILATERAL from 12/30/2010 [facility] DIG MAMM-SCREEN RAY W/CAD from 09/09/[address] ABDOMEN PELVIS W CON from 12/25/2019 TECHNIQUE: . Patient did not drink Gastrografin for this exam-but did report drinking ain Pepto-Bismol this morning, which is evident in the transverse colon on this exam . 75 cc Isovue 370 IV contrast utilized Helical axial images obtained with sagittal and coronal reformats. All CT scans at the facility use one or more dose reduction, viz: automated exposure control, ma/kV adjustment per patient size (including targeted exams where dose is matched to indication, i.e. head), or iterative reconstruction technique. FINDINGS: Lower thorax: No acute finding lung bases clear.. Heart normal size. Stable dense benign calcifications left breast again noted ABDOMEN/PELVIS: Liver: No significant appearing new findings. . Would note what appears to be very minor fatty change anterior left lobe the, near falciform ligament;. No mass effect. No discrete masses. No r biliary dilatation. Gallbladder: Surgically removed. Clips gallbladder fossa.. The . Common duct is generous in caliber slightly dilated appears unchanged to prior to 2019 CT, and compatible with post cholecystectomy changes.. No intrahepatic biliary Ductal dilatation. No stones along the course of common duct Pancreas: No masses or peripancreatic fluid collections. Spleen: unremarkable normal size Adrenals: unremarkable. Kidneys/ureters: unremarkable-no calculi. No obstruction. No masses. No significant change since 2019 CT PELVIS: No remarkable the free fluid cul-de-sac Reproductive:. Normal size anteverted uterus deviates slightly to the right of midline. No significant adnexal the findings or masses. Bladder: Nondistended. No obvious stones or masses. Appendix: Unremarkable. No distention or periappendiceal phlegmonous change. GI tract: --- No prominent findings only question possible minor colitis Large bowel.. Patient did not drink Gastrografin for this exam-but did report drinking ain Pepto-Bismol this morning, which is evident in the yielding air/fluid levels (air/contrast levels) throughout transverse colon and rectum Borderline wall thickening at descending colon most likely reflecting the lack of contents, lack of distension. But borderline/mild wall thickening remote/subtle wall thickening right colon however is also noted and could reflect a mild colitis There is slight increased gas throughout large transverse colon but no significant distention/dilatation of large bowel Again the combination of observations including the liquid stool throughout colon, borderline wall thickening-may reflect mild colitis. I do not see any acute diverticulitis.. Only suggestion of few small diverticula are scattered throughout colon but a-these are unimpressive The appendix is normal, and filled with contrast the material Terminal ileum upper normal thickness Small bowel:. Appears satisfactory., normal caliber throughout the stomach: Upper normal wall thickness here by far most likely reflecting reflecting lack distension . ======= Peritoneum: No abnormal fluid collections. No obvious inflammatory changes. No free air. No significant hernia evident. Lymph nodes: No enlarged lymph nodes apparent. Vasculature: -satisfactory. SMA celiac artery AMY visualized and patent, unremarkable No retroperitoneal findings. Bones: No acute fracture or lesion Mild degenerative disc space narrowing and mild
[2020-06-04 15:55] VITALS: BP 147/68; PULSE 72; RESP 18; O2SAT 99
[2020-06-04 16:09] LABS: Basophils % 0.5 % (0.1-2.0); Eosinophils % 0.5 % (0.1-12.0); Hematocrit 43.9 % (37.0-47.0); Hemoglobin 14.6 g/dL (12.2-16.2); Lymphocytes # 1.4 K/mm3 (0.7-4.5); Lymphocytes % 30.5 % (10-50); Mean Corpuscular HGB Conc 33.2 g/dL (31.8-35.4); Mean Corpuscular Hemoglobin 31.5 pg (27.0-31.2); Mean Platelet Volume 9.9 fl (7.4-10.4); Monocytes # 0.2 K/mm3 (0.1-1.0); Monocytes % 4.1 % (1.7-9.3); Neutrophils % 64.4 % (37.0-80.0); Platelet Count 180 K/mm3 (142-424); Red Blood Count 4.62 M/mm3 (4.20-5.40); Red Cell Distribution Width 12.9 % (11.5-17.5); White Blood Count 4.6 K/mm3 (4.8-10.8)
[2020-06-04 16:15] LABS: Alanine Aminotransferase 20 U/L (12-78); Albumin Level 4.8 g/dl (3.5-5.0); Albumin/Globulin Ratio 1.5 (1.1-1.8); Alkaline Phosphatase 84 U/L (38-126); Anion Gap 14.6 mEq/L (5-15); Aspartate Amino Transferase 31 U/L (14-36); Bilirubin,Total 0.7 mg/dl (0.2-1.3); Blood Urea Nitrogen 7 mg/dl (7-17); Calcium 10.7 mg/dl (8.4-10.2); Carbon Dioxide 27 mmol/L (22.0-30.0); Chloride 103 mmol/L (98-107); Creatinine Clearance Estimated 87 mL/min (50-200); Estimated Glomerular Filt Rate 74 ml/min (>60); GFR (African American) 90 ML/MIN (>60); Globulin 3.2 g/dL (1.3-3.2); Glucose 100 mg/dl (74-100); Lipase 113 U/L (23-300); Potassium 3.6 mmoL/L (3.5-5.1); Sodium 141 mmol/L (136-145)
[2020-06-04 16:25] VITALS: BP 166/82; PULSE 78; RESP 18; O2SAT 99
[2020-06-04 17:00] VITALS: BP 186/93; PULSE 82; RESP 18; O2SAT 98
[2020-06-04 17:15] LABS: Microscopic, Urine URINE MICROSCOPIC (MICROSCOPIC)
[2020-06-04 17:16] LABS: Appearance,Urine CLOUDY (Clear); Bilirubin,Urine Negative (Negative); Blood, Urine TRACE-I (Negative); Color,Urine YELLOW (Yellow); Glucose,Urine (UA) Negative (Negative); Ketones,Urine 1+ (Negative); Leukocyte Esterase,Urine 2+ (Negative); Nitrate,Urine POSITIVE (Negative); Protein,Urine Negative (Negative); Specific Gravity, Urine 1.015 (1.005-1.030); Urobilinogen,Urine 0.2 EU/dl (0.2)
[2020-06-04 17:32] VITALS: BP 198/74; PULSE 79; RESP 18; O2SAT 99
[2020-06-04 17:44] LABS: Bacteria,Urine 4+ /lpf; Mucus,Urine 1+ /lpf; WBC,Urine 50-100 #/hpf (0-3)
--- NOTE | 2020-06-04 17:59 | HMH.EDABDPAI ---
ED Disposition Clinical Impression: Acute UTI Abdominal pain Qualifiers: Abdominal location: generalized Qualified Code(s): R10.84 - Generalized abdominal pain Disposition: Home, Self-Care Condition on Discharge: Good Instructions: DI for Urinary Tract Infection (UTI) Prescriptions: cephALEXin [cephALEXin 500mg capsule*] 500 mg PO BID #14 cap Transmission Status: Pending to [facility] # Ondansetron [Zofran 4mg ODT] 4 mg PO BIDP PRN #10 tab PRN Reason: Nausea Transmission Status: Pending to [facility] # Referrals: Ly Matson APRN [Primary Care Provider] - - Critical Care Critical Care Time: No Attestation: On 06/04/20, the high probability of a clinically significant, sudden or life threatening deterioration of the following system(s) required my full and direct attention, intervention and personal management. The time I documented below is in addition to time spent performing reported procedures but includes the following listed in this critical care notation. Medical Decision Making - Medical Records Medical records reviewed: Yes: I reviewed the patient's medical records. - Dave Inquiry Pt receiving controlled substance: Yes Dave was queried for this patient: No Reason not queried -: Emergent pt cond-no time Risks and benefits of using a controlled substance: were discussed with pt by me Vital Signs: 06/04/20 15:25 06/04/20 15:55 06/04/20 16:25 Temperature 98.7 F Temperature Source Oral Pulse Rate [Left Radial] 90 72 78 Respiratory Rate 18 18 18 Blood Pressure [Right Arm] 166/79 H 147/68 H 166/82 H Blood Pressure Mean [Right Arm] 108 94 110 Blood Pressure Source [Right Arm] Automatic Cuff Automatic Cuff Automatic Cuff Blood Pressure Position [Right Arm] Sitting Sitting Supine 02 Sat by Pulse Oximetry 99 99 99 Oxygen Delivery Method Room Air Room Air Room Air 06/04/20 17:00 06/04/20 17:32 Temperature Temperature Source Pulse Rate [Left Radial] 82 79 Respiratory Rate 18 18 Blood Pressure [Right Arm] 186/93 H 198/74 H Blood Pressure Mean [Right Arm] 124 115 Blood Pressure Source [Right Arm] Automatic Cuff Blood Pressure Position [Right Arm] Sitting 02 Sat by Pulse Oximetry 98 99 Oxygen Delivery Method - Lab Data Lab Results 06/04/20 15:45: WBC 4.6 L, RBC 4.62, Hgb 14.6, Hct 43.9, MCV 95.0, MCH 31.5 H, MCHC 33.2, RDW 12.9, Plt Count 180, MPV 9.9, Neut % (Auto) 64.4, Lymph % (Auto) 30.5, [place] % (Auto) 4.1, Eos % (Auto) 0.5, Baso % (Auto) 0.5, Neut # (Auto) 3.0, Lymph # (Auto) 1.4, [place] # (Auto) 0.2, Eos # (Auto) 0.0, Baso # (Auto) 0.0 06/04/20 15:45: Sodium 141, Potassium 3.6, Chloride 103, Carbon Dioxide 27, Anion Gap 14.6, BUN 7, Creatinine 0.80, Estimated Creat Clear 87, Estimated GFR 74, Est GFR ( Amer) 90, Glucose 100, Calcium 10.7 H, Total Bilirubin 0.7, AST 31, ALT 20, Alkaline Phosphatase 84, Total Protein 8.0, Albumin 4.8, Globulin 3.2, Albumin/Globulin Ratio 1.5, Lipase 113 06/04/20 17:05: Urine Color Yellow, Urine Appearance Cloudy, Urine pH 6.0, Ur Specific [place] 1.015, Urine Protein Negative, Urine Glucose (UA) Negative, Urine Ketones 1+, Urine Blood Trace-i, Urine Nitrate Positive, Urine Bilirubin Negative, Urine Urobilinogen 0.2, Ur Leukocyte Esterase 2+ A, Urine WBC 50-100, Ur Squamous Epith Cells 3-5, Urine Bacteria 4+, Urine Mucus 1+ Result diagrams: 06/04/20 15:45 06/04/20 15:45 Orders (Tests/Meds): ED MEDICATIONS Generic Name Dose Route Start Last Admin Trade Name Freq PRN Reason Stop Dose Admin Ceftriaxone Sodium 1 gm/ 50 mls @ 100 mls/hr 06/04/20 18:00 Sodium Chloride IV 06/18/20 17:59 Q24H [facility] Protocol Discontinued Medications Generic Name Dose Route Start Last Admin Trade Name Freq PRN Reason Stop Dose Admin Sodium Chloride 1,000 mls @ 999 mls/hr 06/04/20 15:45 06/04/20 16:13 Sod Chlor 0.9% 1000ml Bag IV 06/04/20 16:45 999 mls/hr .Q1H1M DONNIE Administratio
[2020-06-04 18:42] VITALS: BP 179/83; PULSE 66; RESP 20; TEMP 37.1; O2SAT 99
== END 2020-06-04 18:44 | disposition home or self-care (01) ==
PROVIDERS: Emergency Provider Emergency Medicine; PCP Nurse Practitioner
DX: N30.00 Acute cystitis without hematuria (principal); B96.20 Unspecified Escherichia coli [E. coli] as the cause of diseases classified elsewhere; K57.92 Diverticulitis of intestine, part unspecified, without perforation or abscess without bleeding
CPT/HCPCS: 74177; 80053; 81001; 83690; 85025; 87086; 87088; 87186; 96365; 96375; 99284; J2405; Q9967

== ENCOUNTER → 2020-06-18 13:59 | Outpatient (CLI) | payer BC, SELFPAY ==
--- NOTE | 2020-06-18 14:04 | XR_ITS ---
PROCEDURE: XR LUMBAR SPINE MIN 4V CLINICAL INDICATION: BACK PAIN COMPARISON: No exams were available for comparison FINDINGS: Minimal lumbar curvature convex right. Mild facet arthritic changes. Degenerative disc disease from L1-S1 worse at the L5-S1 junction. No fracture or dislocation. No lytic or blastic change. Other findings:None. IMPRESSION: Degenerative changes otherwise negative Dictated by: Tra Christina MD 06/18/2020 17:22 Tra Christina MD in [place] 06/18/2020 17:22
== END ==
LOC: RAD 14:01
PROVIDERS: PCP Nurse Practitioner Family; Visit Provider Nurse Practitioner Family
DX: M54.16 Radiculopathy, lumbar region (principal)
CPT/HCPCS: 72110

== ENCOUNTER → 2020-08-12 10:11 | Outpatient (CLI) | payer BC, SELFPAY ==
--- NOTE | 2020-08-12 10:13 | MM_ITS ---
PROCEDURE INFORMATION: Exam: MG Screening 3D Mammography Exam date and time: 08/12/2020 10:13 AM Age: 55 years old Clinical indication: Encounter for screening mammogram for malignant neoplasm of breast. Personal history of left breast carcinoma treated with partial mastectomy and radiation. Family history of breast carcinoma TECHNIQUE: Imaging protocol: Screening tomosynthesis and 2D mammography including computer-aided detection (CAD) when performed. COMPARISON: 1. MG SCBI MM Dig screening mamm BI w/CAD 06/28/2018 8:46 AM 2. MG DMSB DIG MAMM-SCREEN RAY W/CAD 09/09/2016 11:20 AM 3. MG DMSB DIG MAMM-SCREEN RAY 12/19/2013 10:01 AM FINDINGS: MAMMOGRAPHY: Breast composition: There are scattered areas of fibroglandular density. Mass: No new suspicious masses. Architectural distortion: No suspicious distortion. Post lumpectomy changes noted in the 6 o'clock position of the left breast. Calcifications: No suspicious calcifications. Asymmetric density: None. Skin thickening: None. Axillary adenopathy: None. IMPRESSION: No mammographic evidence of malignancy. Annual screening is recommended unless otherwise clinically indicated. ASSESSMENT: BI-RADS Category 2: Benign
== END ==
PROVIDERS: PCP Family Medicine; Visit Provider Nurse Practitioner Family
DX: Z12.31 Encounter for screening mammogram for malignant neoplasm of breast (principal)
CPT/HCPCS: 77063; 77067

== ENCOUNTER 2020-10-20 09:36 | Emergency (ER) | payer BC, SELFPAY ==
[2020-10-20 09:40] VITALS: BP 168/85; PULSE 97; RESP 18; TEMP 36.8; O2SAT 99; BMI 26.4
[2020-10-20 10:09] LABS: Basophils % 0.4 % (0.1-2.0); Eosinophils # 0.1 K/mm3 (0.0-0.4); Eosinophils % 1.1 % (0.1-12.0); Hematocrit 42.1 % (37.0-47.0); Lymphocytes # 0.9 K/mm3 (0.7-4.5); Lymphocytes % 15.5 % (10-50); Mean Corpuscular HGB Conc 33.2 g/dL (31.8-35.4); Mean Corpuscular Hemoglobin 30.8 pg (27.0-31.2); Mean Corpuscular Volume 92.9 fl (81-99); Mean Platelet Volume 9.9 fl (7.4-10.4); Monocytes # 0.2 K/mm3 (0.1-1.0); Monocytes % 3.4 % (1.7-9.3); Neutrophils # 4.8 K/mm3 (1.8-7.8); Neutrophils % 79.6 % (37.0-80.0); Platelet Count 159 K/mm3 (142-424); Red Blood Count 4.53 M/mm3 (4.20-5.40); Red Cell Distribution Width 12.5 % (11.5-17.5); White Blood Count 6.1 K/mm3 (4.8-10.8)
[2020-10-20 10:11] VITALS: BP 157/83; PULSE 78
[2020-10-20 10:13] LABS: Chloride 105 mmol/L (98-107); Sodium 142 mmol/L (136-145)
[2020-10-20 10:13] LABS: Microscopic, Urine URINE MICROSCOPIC (MICROSCOPIC)
[2020-10-20 10:14] LABS: Appearance,Urine SL CLOUDY (Clear); Blood, Urine Negative (Negative); Color,Urine YELLOW (Yellow); Glucose,Urine (UA) Negative (Negative); Ketones,Urine 1+ (Negative); Leukocyte Esterase,Urine 2+ (Negative); Nitrate,Urine Negative (Negative); Protein,Urine Negative (Negative)
[2020-10-20 10:14] LABS: Potassium 3.8 mmoL/L (3.5-5.1)
[2020-10-20 10:16] LABS: Alanine Aminotransferase 16 U/L (12-78); Albumin Level 4.6 g/dl (3.5-5.0); Albumin/Globulin Ratio 1.5 (1.1-1.8); Alkaline Phosphatase 96 U/L (38-126); Anion Gap 11.8 mEq/L (5-15); Aspartate Amino Transferase 31 U/L (14-36); Bilirubin,Total 1.1 mg/dl (0.2-1.3); Blood Urea Nitrogen 11 mg/dl (7-17); Carbon Dioxide 29 mmol/L (22.0-30.0); Creatinine Clearance Estimated 87 mL/min (50-200); Estimated Glomerular Filt Rate 74 ml/min (>60); GFR (African American) 90 ML/MIN (>60); Glucose 119 mg/dl (74-100); Lipase 95 U/L (23-300); Total Protein,Serum 7.6 g/dl (6.3-8.2)
--- NOTE | 2020-10-20 10:16 | HMH.EDGENADL ---
ED Disposition Clinical Impression: Gastroenteritis Disposition: Home, Self-Care Condition on Discharge: Good Instructions: DI for Viral Gastroenteritis -- Adult Additional Instructions: Phenergan suppositories as needed for nausea and vomiting. [id number] Imodium for diarrhea. Tylenol for pain. Additional instructions for VOMITING/DIARRHEA: See your physician as soon as possible for further evaluation. Drink plenty of fluids. Return immediately if severe abdominal pain, uncontrollable vomiting, shortness of breath, fever, vomiting of blood or abdominal distention. Prescriptions: Promethazine HCl [Phenergan 25mg Suppository] 25 mg RC Q6HP PRN #6 supp.rect PRN Reason: Nausea And Vomiting Transmission Status: Pending to [facility] #[id number] Referrals: Jerod Scott MD [Primary Care Provider] - - Critical Care Critical Care Time: No Attestation: On 10/20/20, the high probability of a clinically significant, sudden or life threatening deterioration of the following system(s) required my full and direct attention, intervention and personal management. The time I documented below is in addition to time spent performing reported procedures but includes the following listed in this critical care notation. Medical Decision Making - Dave Inquiry Pt receiving controlled substance: No Vital Signs: 10/20/20 09:40 10/20/20 10:11 10/20/20 10:30 Temperature 98.2 F Temperature Source Oral Pulse Rate 78 85 Pulse Rate [Right Radial] 97 H Respiratory Rate 18 Blood Pressure 157/83 H 167/91 H Blood Pressure [Right Arm] 168/85 H Blood Pressure Mean 112 121 Blood Pressure Mean [Right Arm] 112 Blood Pressure Source [Right Arm] Automatic Cuff Blood Pressure Position [Right Arm] Sitting 02 Sat by Pulse Oximetry 99 100 Oxygen Delivery Method Room Air - Lab Data Lab Results 10/20/20 09:59: WBC 6.1, RBC 4.53, Hgb 14.0, Hct 42.1, MCV 92.9, MCH 30.8, MCHC 33.2, RDW 12.5, Plt Count 159, MPV 9.9, Neut % (Auto) 79.6, Lymph % (Auto) 15.5, [place] % (Auto) 3.4, Eos % (Auto) 1.1, Baso % (Auto) 0.4, Neut # (Auto) 4.8, Lymph # (Auto) 0.9, [place] # (Auto) 0.2, Eos # (Auto) 0.1, Baso # (Auto) 0.0 10/20/20 09:59: Sodium 142, Potassium 3.8, Chloride 105, Carbon Dioxide 29, Anion Gap 11.8, BUN 11, Creatinine 0.80, Estimated Creat Clear 87, Estimated GFR 74, Est GFR ( Amer) 90, Glucose 119 H, Calcium 10.0, Total Bilirubin 1.1, AST 31, ALT 16, Alkaline Phosphatase 96, Total Protein 7.6, Albumin 4.6, Globulin 3.0, Albumin/Globulin Ratio 1.5, Lipase 95 10/20/20 10:00: Urine Color Yellow, Urine Appearance Sl cloudy, Urine pH 7.0, Ur Specific [place] 1.020, Urine Protein Negative, Urine Glucose (UA) Negative, Urine Ketones 1+, Urine Blood Negative, Urine Nitrate Negative, Urine Bilirubin 1+ A, Urine Urobilinogen 1.0, Ur Leukocyte Esterase 2+ A, Urine RBC None, Urine WBC 5-10, Ur Squamous Epith Cells 3-5, Urine Bacteria None Result diagrams: 10/20/20 09:59 10/20/20 09:59 Orders (Tests/Meds): ED MEDICATIONS Discontinued Medications Generic Name Dose Route Start Last Admin Trade Name Freq PRN Reason Stop Dose Admin Sodium Chloride 1,000 mls @ 999 mls/hr 10/20/20 10:15 10/20/20 10:05 Sod Chlor 0.9% 1000ml Bag IV 10/20/20 11:15 999 mls/hr .Q1H1M DONNIE Administration Iopamidol 75 ml 10/20/20 11:10 10/20/20 11:11 Iopamidol-370 (76%);100ml Bottle IV 10/20/20 11:11 75 ml ONCE ONE Administration Ketorolac Tromethamine 30 mg 10/20/20 10:19 10/20/20 11:30 Ketorolac 30mg/Ml Vial IV 10/20/20 10:20 30 mg ONCE ONE Administration Ondansetron HCl 4 mg 10/20/20 10:03 10/20/20 10:05 Ondansetron 4mg/2ml Vial IV 10/20/20 10:04 4 mg ONCE ONE Administration Promethazine HCl 12.5 mg 10/20/20 11:35 10/20/20 11:42 Promethazine Hcl 25mg/Ml 1ml Vial IV 10/20/20 11:36 12.5 mg ONCE ONE Administration Sodium Chloride 10 ml 10/20/20 11:10 10/20/20 11:11 Sodium Chlo
--- NOTE | 2020-10-20 10:21 | CT_ITS ---
PROCEDURE: CT ABDOMEN PELVIS W CON CLINICAL INDICATION: abdominal pain COMPARISON: CT CT ABDOMEN PELVIS W CON from 06/04/2020 TECHNIQUE: IV Contrast: 75ML Isovue 370 Oral Contrast None Axial images obtained with sagittal and coronal reformats. All CT scans at the facility use one or more dose reduction, viz: automated exposure control, ma/kV adjustment per patient size (including targeted exams where dose is matched to indication, i.e. head), or iterative reconstruction technique. FINDINGS: LOWER THORAX: Dense area of calcification is present in the inferior aspect of the left breast not significantly changed. ABDOMEN & PELVIS: There has been a prior cholecystectomy with mild biliary ductal dilatation of the common hepatic and common bile duct possibly due to reservoir effect. The common bile duct measures approximately 9 mm previously measuring approximately 7 mm. The spleen, adrenal glands, and pancreas have an unremarkable appearance. No renal or ureteral calculi. No hydronephrosis. No intestinal obstruction or free air. Unremarkable appearing appendix. No evidence of diverticulitis. There is a small umbilical hernia containing fat There is mild degenerative disc disease at L5-S1 with partially calcified bulging disc eccentric to the right. IMPRESSION: No acute finding Dictated by: Tra Christina MD 10/20/2020 11:24 Tra Christina MD in [place] 10/20/2020 11:24
[2020-10-20 10:25] LABS: Bilirubin,Urine 1+ (Negative)
[2020-10-20 10:30] VITALS: BP 167/91; PULSE 85; O2SAT 100
--- NOTE | 2020-10-20 10:51 | PC.NURSE ---
pt gone to have ct
[2020-10-20 11:30] VITALS: BP 149/76; PULSE 87; O2SAT 97
[2020-10-20 12:00] VITALS: BP 151/84; PULSE 82; PULSE 85; RESP 16; TEMP 36.8; O2SAT 97; O2SAT 98
== END 2020-10-20 12:21 | disposition home or self-care (01) ==
PROVIDERS: Emergency Provider Emergency Medicine; PCP Family Medicine
DX: K52.9 Noninfective gastroenteritis and colitis, unspecified (principal); E78.5 Hyperlipidemia, unspecified
CPT/HCPCS: 74177; 80053; 81001; 83690; 85025; 87086; 96365; 99282; 99283; J2405; Q9967

== ENCOUNTER → 2022-07-14 14:46 | Outpatient (CLI) | payer BC, SELFPAY ==
--- NOTE | 2022-07-14 14:46 | US_ITS ---
FINAL REPORT TECHNIQUE: Sonographic images of the pelvis were obtained transvaginally. CLINICAL HISTORY: pelvic pain FINDINGS: The uterus is anteverted and anteflexed. It measures 7.0 x 3.0 x 4.5. The endometrial stripe measures 2 mm. The myometrium is homogeneous. The cervix is within normal limits. The right ovary measures 1.3 x 1.4 x 1.3. It is normal in appearance. The left ovary measures 1.7 x 1.2 x 1.5. It is normal in appearance. Color imaging to the ovaries is within normal limits. There is no free fluid. IMPRESSION: Normal sonographic appearance to the uterus and ovaries for age. Reviewed, Interpreted and Dictated by Sary Gonzalez MD Transcribed by Swetha Larry Authenticated and [facility]
--- NOTE | 2022-07-14 14:46 | MM_ITS ---
PROCEDURE INFORMATION: Exam: MG Bilateral Screening 3D Mammography Exam date and time: 07/14/2022 2:55 PM Age: 57 years old Clinical indication: Screening mammogram TECHNIQUE: Imaging protocol: Bilateral Screening tomosynthesis and 2D mammography including computer-aided detection (CAD) when performed. COMPARISON: 1. MG MM DIG SCREENING MAMM BI W/CAD 08/12/2020 10:26 AM 2. MG SCBI MM Dig screening mamm BI w/CAD 06/28/2018 8:46 AM 3. MG DMSB DIG MAMM-SCREEN RAY W/CAD 09/09/2016 11:20 AM 4. MG DMSB DIG MAMM-SCREEN RAY 12/19/2013 10:01 AM FINDINGS: MAMMOGRAPHY: Breast composition: There are scattered areas of fibroglandular density. Mass: None. Architectural distortion: No new or suspicious architectural distortion. Calcifications: Stable benign-appearing calcifications are present. No new or suspicious cluster of microcalcifications have developed. Asymmetric density: No new or suspicious asymmetric density is present Skin thickening: None. Axillary adenopathy: None. Other findings: Stable postoperative findings in the left breast and axillaAssessment: BI-RADS category 2: Benign; . IMPRESSION: No mammographic evidence of malignancy. Recommend annual screening mammography unless otherwise clinically indicated. ASSESSMENT: BI-RADS Category 1: Negative
== END ==
LOC: RAD 14:46
PROVIDERS: PCP Family Medicine; Visit Provider Obstetrics & Gynecology
DX: Z12.31 Encounter for screening mammogram for malignant neoplasm of breast (principal); R10.2 Pelvic and perineal pain
CPT/HCPCS: 76830; 77063; 77067

== ENCOUNTER 2023-10-07 20:42 | Emergency (ER) | payer BC, SELFPAY ==
[2023-10-07 20:43] VITALS: BP 163/84; PULSE 82; RESP 16; TEMP 36.7; O2SAT 99; BMI 28.3
--- NOTE | 2023-10-07 21:07 | CT_ITS ---
PROCEDURE INFORMATION: Exam: CT Abdomen And Pelvis With Contrast Exam date and time: 10/07/2023 9:38 PM Age: 58 years old Clinical indication: Pain; Other: Flank; Additional info: RT flank pain TECHNIQUE: Imaging protocol: Computed tomography of the abdomen and pelvis with contrast. Radiation optimization: All CT scans at this facility use at least one of these dose optimization techniques: automated exposure control; mA and/or kV adjustment per patient size (includes targeted exams where dose is matched to clinical indication); or iterative reconstruction. Contrast material: ISOVUE; Contrast volume: 75 ml; Contrast route: IV; COMPARISON: CT ABDOMEN PELVIS W CON 10/20/2020 11:01 AM FINDINGS: Lungs: No acute finding. Liver: Normal. No mass. Gallbladder and biliary ducts: The gallbladder is absent. There is no biliary ductal dilation. Pancreas: Normal. No ductal dilation. Spleen: Normal. No splenomegaly. Adrenal glands: Normal. No mass. Kidneys and ureters: There is a 3.5 mm right ureteral calculus at the level of the UVJ causing mild hydroureteronephrosis. The left kidney and ureter are normal. Stomach and bowel: Unremarkable. No obstruction. No mucosal thickening. Appendix: No evidence of appendicitis. Intraperitoneal space: Unremarkable. No free air. No significant fluid collection. Vasculature: Unremarkable. No abdominal aortic aneurysm. Lymph nodes: Unremarkable. No enlarged lymph nodes. Urinary bladder: Unremarkable as visualized. Reproductive: Unremarkable as visualized. Bones/joints: Diffuse significant facet arthropathy throughout the lumbar spine. No acute fracture. Soft tissues: Unremarkable. IMPRESSION: 3.5 mm right UVJ calculus causing mild hydroureteronephrosis.
[2023-10-07] MEDS: KETOROLAC 30MG/ML VIAL 30 MG IV (21:15)
[2023-10-07] MEDS: ONDANSETRON 4MG/2ML VIAL 4 MG IV (21:15)
[2023-10-07] MEDS: LACTATED RINGERS 1000ML 1,000 ML 999 ML IV (21:15)
[2023-10-07 21:19] LABS: Basophils # 0.1 K/mm3 (0-0.2); Basophils % 0.9 % (0.1-2.0); Eosinophils # 0.1 K/mm3 (0.0-0.4); Eosinophils % 0.9 % (0.1-12.0); Hematocrit 40.5 % (37.0-47.0); Hemoglobin 13.6 g/dL (12.2-16.2); Lymphocytes # 1.2 K/mm3 (0.7-4.5); Lymphocytes % 21.6 % (10-50); Mean Corpuscular HGB Conc 33.5 g/dL (31.8-35.4); Mean Corpuscular Hemoglobin 32.4 pg (27.0-31.2); Mean Corpuscular Volume 96.5 fl (81-99); Mean Platelet Volume 11.7 fl (7.4-10.4); Monocytes # 0.3 K/mm3 (0.1-1.0); Monocytes % 5.2 % (1.7-9.3); Neutrophils % 71.5 % (37.0-80.0); Platelet Count 152 K/mm3 (142-424); Red Blood Count 4.19 M/mm3 (4.20-5.40); Red Cell Distribution Width 13.5 % (11.5-17.5); White Blood Count 5.6 K/mm3 (4.8-10.8)
[2023-10-07 21:19] LABS: Microscopic, Urine URINE MICROSCOPIC (MICROSCOPIC)
[2023-10-07 21:24] LABS: Chloride 107 mmol/L (98-107); Potassium 3.6 mmoL/L (3.5-5.1); Sodium 140 mmol/L (136-145)
[2023-10-07 21:25] LABS: Appearance,Urine CLEAR (Clear); Bilirubin,Urine Negative (Negative); Blood, Urine 1+ (Negative); Color,Urine YELLOW (Yellow); Glucose,Urine (UA) Negative (Negative); Ketones,Urine TRACE (Negative); Leukocyte Esterase,Urine 1+ (Negative); Nitrate,Urine POSITIVE (Negative); Protein,Urine TRACE (Negative)
[2023-10-07 21:26] LABS: Alanine Aminotransferase 36 U/L (12-78); Aspartate Amino Transferase 45 U/L (14-36); Blood Urea Nitrogen 16 mg/dl (7-17); Creatinine Clearance Estimated 80 mL/min (50-200); Estimated Glomerular Filt Rate 64 ml/min (>60); GFR (African American) 78 ML/MIN (>60); Lactic Acid 0.7 mmol/L (0.7-2.1)
[2023-10-07 21:27] LABS: Albumin Level 4.4 g/dl (3.5-5.0); Albumin/Globulin Ratio 1.5 (1.1-1.8); Alkaline Phosphatase 82 U/L (38-126); Anion Gap 9.6 mEq/L (5-15); Bilirubin,Total 0.6 mg/dl (0.2-1.3); Calcium 9.9 mg/dl (8.4-10.2); Carbon Dioxide 27 mmol/L (22.0-30.0); Globulin 2.9 g/dL (1.3-3.2); Glucose 102 mg/dl (74-100); Total Protein,Serum 7.3 g/dl (6.3-8.2)
[2023-10-07 21:37] LABS: Bacteria,Urine 1+ /lpf; Squamous Epithelial Cell,Urine Occasional #/hpf (0-5)
[2023-10-07] MEDS: IOPAMIDOL-370 (76%);100ML BOTTLE 75 ML IV (21:46)
[2023-10-07] MEDS: SODIUM CHLORIDE 0.9% 10ML SYR (RAD ONLY) 10 ML IV (21:46)
[2023-10-07 22:00] VITALS: BP 146/76; PULSE 85; O2SAT 96
[2023-10-07 22:30] VITALS: BP 137/70; PULSE 92; O2SAT 96
--- NOTE | 2023-10-07 22:58 | HMH.EDGENADL ---
Discharge Plan Disposition Patient Disposition: Xfer Other Chief Complaint: Abdominal Pain Prescriptions Prescriptions: No Action meloxicam 15 mg tablet 15 mg PO DAILY buspirone 15 mg tablet 15 mg PO BID omeprazole 20 mg capsule,delayed release(DR/EC) 20 mg PO DAILY cholecalciferol (vitamin D3) 125 mcg (5,000 unit) capsule 125 mcg PO DAILY mecobalamin (vitamin B12) 5,000 mcg tablet,chewable 5,000 mcg PO DAILY montelukast 10 MG tablet 10 mg PO HS Referrals Follow up/Referrals: Jerod Scott MD [Primary Care Provider] - See instructions Activity Restrictions/Add. Instructions Additional Instructions/Restrictions: Please proceed directly to [facility] for urology evaluation. Clinical Impressions Clinical Impression: Calculus of ureterovesical junction (UVJ), UTI (urinary tract infection), Hydroureter Stand Alone Forms Stand Alone Forms: Transfer Record - ED Instructions Patient Instructions: DI for Acute Abdominal Pain Discharge ED Provider: Gonzalo Juarez General Adult HPI General Chief complaint: Abdominal Pain Stated complaint: back pain, chills, cannot pee Time Seen by Provider: 10/07/23 22:55 Mode of Arrival: Ambulatory Source of Information: Patient Limitations: No Limitations Description of Symptoms (Recalled from ER Triage Doc. by RN): pt c/o rt flank pain radiating into groin x 3 days with urgency. History of Present Illness HPI narrative: 58-year-old female without history of kidney stones presents with acute onset right flank pain. She has had 3 days of urinary urgency and dysuria, but today she started having flank pain radiating into the right groin. She denies any fevers. She reports that she has had kidney infections in the past but nothing has been severe or required hospitalization. Related Data Home Medications Medication Instructions Recorded Confirmed montelukast 10 mg tablet 10 mg PO HS Allergy symptoms 12/26/19 07/05/22 buspirone 15 mg tablet 15 mg PO BID 07/05/22 07/05/22 cholecalciferol (vitamin D3) 125 125 mcg PO DAILY 07/05/22 07/05/22 mcg (5,000 unit) capsule mecobalamin (vitamin B12) 5,000 5,000 mcg PO DAILY 07/05/22 07/05/22 mcg chewable tablet meloxicam 15 mg tablet 15 mg PO DAILY 07/05/22 07/05/22 omeprazole 20 mg capsule,delayed 20 mg PO DAILY 07/05/22 07/05/22 release Allergies Allergy/AdvReac Type Severity Reaction Status Date / Time codeine Allergy Verified 06/08/20 10:28 guaifenesin Allergy Verified 06/08/20 10:28 [facility] Disclaimer: The information contained in this section may have been updated after the patient was seen, as this information can be updated by other users. Medical History (Updated 10/08/23 @ 00:05 by Gonzalo Juarez MD) Family history of malignant neoplasm of colon Family history of malignant neoplasm of breast Hx of breast cancer Surgical History (Updated 07/05/22 @ 13:35 by PEACE Mirza) History of ear surgery Hx of cholecystectomy Hx of tubal ligation Family History (Updated 07/05/22 @ 13:36 by PEACE Mirza) Father Cancer Grandmother Cancer Other Heart attack Stroke Social History Smoking Status: Never smoker alcohol intake: current alcohol intake frequency: holidays/special occasions only current occupational status: unemployed Travel in the last 8 weeks: None household members: spouse housing: house current occupational exposures/hazards: No caffeine: Yes ROS Obtained: Yes All systems reviewed & no additional complaints except as documented Physical Exam General General appearance: alert and in no apparent distress Head Head exam: atraumatic and normocephalic Eye Eye exam: Present normal appearance, PERRL and EOMI ENT ENT exam: Present normal oropharynx and normal external ear exam Neck Neck exam: Present normal inspection and full ROM Chest Chest inspection: Present normal inspection and symmetric chest wall rise; Absent tenderness Respiratory Respiratory exam: Present normal lung sounds bilaterally; Absent respiratory distress Cardiovascular Cardiovascular exam: Present regular rate and normal rhythm Abdominal Exam Abdominal exam: Present soft; Absent distention, tenderness or guarding Extremities Exam Extremities exam: Present normal inspection; Absent edema or joint swelling Back Exam Back exam: Present normal inspection and CVA tenderness (R) Neurological Exam Neurological exam: Present alert and oriented X3; Absent motor sensory deficit Psychiatric Psychiatric exam: Present normal affect and normal mood Skin Skin exam: Present warm, dry and normal color Lymphatic Lymphatic Findings: no adenopathy Medical Decision Making Medical Records Medical records reviewed: Yes I reviewed the patient's medical records. Dave Inquiry Pt receiving controlled substance: No Dave was queried for this patient: No Vital Signs: 10/07/23 20:43 10/07/23 22:00 10/07/23 22:30 Temperature 98.1 F Temperature Source Oral Pulse Rate 85 92 H Pulse Rate [Right] 82 Respiratory Rate 16 Blood Pressure 146/76 H 137/70 Blood Pressure [Right Arm] 163/84 H Blood Pressure Mean 99 96 Blood Pressure Mean [Right Arm] 110 02 Sat by Pulse Oximetry 99 96 96 10/07/23 23:00 10/07/23 23:31 Temperature Temperature Source Pulse Rate 82 82 Pulse Rate [Right] Respiratory Rate Blood Pressure 141/81 H 175/75 H Blood Pressure [Right Arm] Blood Pressure Mean 97 100 Blood Pressure Mean [Right Arm] 02 Sat by Pulse Oximetry 96 98 Lab Data Lab results reviewed: Yes I reviewed the patient's lab results. Lab Results 10/07/23 21:05: Urine Color Yellow, Urine Appearance Clear, Urine pH 7.0, Ur Specific [place] 1.020, Urine Protein Trace, Urine Glucose (UA) Negative, Urine Ketones Trace, Urine Blood 1+, Urine Nitrate Positive, Urine Bilirubin Negative, Urine Urobilinogen 1.0, Ur Leukocyte Esterase 1+ A, Urine RBC 3-5, Urine WBC 5-10, Ur Squamous Epith Cells Occasional, Urine Bacteria 1+ 10/07/23 21:14: WBC 5.6, RBC 4.19 L, Hgb 13.6, Hct 40.5, MCV 96.5, MCH 32.4 H, MCHC 33.5, RDW 13.5, Plt Count 152, MPV 11.7 H, Neut % (Auto) 71.5, Lymph % (Auto) 21.6, Cuming % (Auto) 5.2, Eos % (Auto) 0.9, Baso % (Auto) 0.9, Neut # (Auto) 4.0, Lymph # (Auto) 1.2, Cuming # (Auto) 0.3, Eos # (Auto) 0.1, Baso # (Auto) 0.1, Sodium 140, Potassium 3.6, Chloride 107, Carbon Dioxide 27, Anion Gap 9.6, BUN 16, Creatinine 0.90, Estimated Creat Clear 80, Estimated GFR 64, Est GFR ( Amer) 78, Glucose 102 H, Lactate 0.7, Calcium 9.9, Total Bilirubin 0.6, AST 45 H, ALT 36, Alkaline Phosphatase 82, Total Protein 7.3, Albumin 4.4, Globulin 2.9, Albumin/Globulin Ratio 1.5 10/07/23 21:14 10/07/23 21:14 Orders (Tests/Meds): ED MEDICATIONS Discontinued Medications Generic Name Dose Route Start Last Admin Trade Name Yannickq PRN Reason Stop Dose Admin Lactated Ringer's 1,000 mls @ 999 mls/hr 10/07/23 21:07 10/07/23 21:15 Lactated Ringer's 1000 Ml Bag IV 10/07/23 22:07 999 mls/hr .Q1H1M ONE Administration Ceftriaxone Sodium 1 gm/ 50 mls @ 100 mls/hr 10/07/23 23:02 10/07/23 23:17 Sodium Chloride IV 10/07/23 23:31 100 mls/hr ONCE ONE Administration Iopamidol 75 ml 10/07/23 21:41 10/07/23 21:46 Iopamidol-370 (76%);100ml Bottle IV 10/07/23 21:42 75 ml ONCE ONE Administration Ketorolac Tromethamine 30 mg 10/07/23 21:07 10/07/23 21:15 Ketorolac 30mg/Ml Vial IV 10/07/23 21:08 30 mg ONCE ONE Administration Ondansetron HCl 4 mg 10/07/23 21:07 10/07/23 21:15 Ondansetron 4mg/2ml Vial IV 10/07/23 21:08 4 mg ONCE ONE Administration Sodium Chloride 10 ml 10/07/23 21:41 10/07/23 21:46 Sodium Chloride 0.9% 10ml Syr (Rad Only) IV 10/07/23 21:42 10 ml ONCE ONE Administration ORDERS Category Date Time Status CT abdomen pelvis w con Stat Cat Scan 10/07/23 21:07 Completed Complete Blood Count Auto Diff Stat Lab 10/07/23 21:14 Completed Comprehensive Metabolic Panel Stat Lab 10/07/23 21:14 Completed Lactic Acid Stat Lab 10/07/23 21:14 Completed Urinalysis and Microscopic Stat Lab 10/07/23 21:05 Completed Blood Culture Stat Micro 10/07/23 23:25 Received Urine Culture Stat Micro 10/07/23 21:05 Received Medical Decision Narrative: 58-year-old female without significant past medical history presents with 3 days of urinary symptoms and relatively sudden onset right flank and groin pain today.. History was obtained interactive discussion with patient, chart review. On arrival, patient is [afebrile, hemodynamically stable, satting appropriately, alert, oriented x4, GCS 15], moving all extremities spontaneously. Full physical exam performed and significant for right flank tenderness Differential includes but is not limited to pyelonephritis, obstructing stone, infected stone, appendicitis. Patient was given Toradol, Zofran, 1 L fluid bolus for symptomatic management and correction of underlying abnormalities. Workup initiated including CBC CMP CT abdomen pelvis with IV contrast urinalysis blood cultures. On re-evaluation, patient reports symptomatic improvement. Laboratory workup independently interpreted by me and significant for urine concerning for infection, positive nitrates, 5-10 WBCs and 1+ bacteria. No significant leukocytosis.. Imaging independently interpreted by me and significant for obstructing right 4 mm UVJ stone with proximal hydroureter and hydronephrosis. See radiology read for full review of final results. Given patient history, exam and workup, patient's presentation most likely represents an infected kidney stone given urine and CT findings. Given this, patient initiated on ceftriaxone for empiric coverage. Interactive discussion was had with [facility] and Dr. Maya who accepted the patient in transfer for urology evaluation as this is a potential surgical emergency. Procedures Risk/Benefits of Procedure(s) Were Explained: Yes Critical Care Critical Care Time Critical Care Time: Yes Attestation: On 10/07/23, the high probability of a clinically significant, sudden or life threatening deterioration of the following system(s) urology required my full and direct attention, intervention and personal management. The time I documented below is in addition to time spent performing reported procedures but includes the following listed in this critical care notation. Total Time Total Critical Care Time: 36
[2023-10-07 23:00] VITALS: BP 141/81; PULSE 82; O2SAT 96
--- NOTE | 2023-10-07 23:14 | PC.NURSE ---
Assisted patient to the restroom.
[2023-10-07] MEDS: CEFTRIAXONE 1 GM 1 GM in 0.9 % SODIUM CHLORIDE 50 ML IV (23:17)
--- NOTE | 2023-10-07 23:29 | PC.NURSE ---
Both sets of cultures collected and sent to lab, [facility] borreroed and currently running at this time.
[2023-10-07 23:31] VITALS: BP 175/75; PULSE 82; O2SAT 98
--- NOTE | 2023-10-07 23:36 | PC.NURSE ---
called [facility] for possible transfer
[2023-10-08 00:09] VITALS: BP 142/78; PULSE 79; RESP 16; TEMP 36.7; O2SAT 97
== END 2023-10-08 00:09 | disposition other institution (70) ==
PROVIDERS: Emergency Medicine; Emergency Provider Emergency Medicine; PCP Family Medicine
DX: N13.0 Hydronephrosis with ureteropelvic junction obstruction (principal); N13.4 Hydroureter; R10.31 Right lower quadrant pain; M54.59 Other low back pain; R30.0 Dysuria; R35.0 Frequency of micturition
CPT/HCPCS: 74177; 80053; 81001; 83605; 85025; 87040; 87086; 96361; 96365; 96375; 99285; J0696; J1885; J2405; J7120; Q9967

== ENCOUNTER 2023-11-02 09:51 | Outpatient (CLI) | payer BC, SELFPAY ==
--- NOTE | 2023-11-02 09:54 | MM_ITS ---
PROCEDURE INFORMATION: Exam: MG Bilateral Screening 3D Mammography Exam date and time: 11/02/2023 9:51 AM Age: 58 years old Clinical indication: Screening examination TECHNIQUE: Imaging protocol: Bilateral Screening tomosynthesis and 2D mammography including computer-aided detection (CAD) when performed. COMPARISON: 1. MG MM DIG SCREENING MAMM BI W/CAD 07/14/2022 2:55 PM 2. MG MM DIG SCREENING MAMM BI W/CAD 08/12/2020 10:26 AM FINDINGS: MAMMOGRAPHY: Breast composition: There are scattered areas of fibroglandular density. Mass: None. Architectural distortion: None. Calcifications: No suspicious calcifications. Asymmetric density: None. Skin thickening: None. Axillary adenopathy: None. IMPRESSION: No mammographic evidence of malignancy. Annual screening is recommended unless otherwise clinically indicated. ASSESSMENT: BI-RADS Category 1: Negative
--- NOTE | 2023-11-02 10:23 | XR_ITS ---
FINAL REPORT CLINICAL HISTORY: SCREENING FOR HX OF BREAST CA FINDINGS: 2 views of the chest were obtained . The heart is normal in size. The mediastinum is within normal limits. The lungs are clear. There is no pneumothorax. Osseous structures are unremarkable. IMPRESSION: No acute cardiopulmonary process. Reviewed, Interpreted and Dictated by Sary Gonzalez MD Transcribed by Rafaela Baird Authenticated and [facility]
== END 2023-11-02 23:59 | disposition home or self-care (01) ==
LOC: RAD 09:52
PROVIDERS: PCP Family Medicine; Visit Provider Family Medicine
DX: Z12.39 Encounter for other screening for malignant neoplasm of breast (principal)
CPT/HCPCS: 71046; 77063; 77067

== ENCOUNTER 2024-11-20 11:58 | Outpatient (CLI) | payer BC, SELFPAY ==
[2024-11-20 14:58] LABS: Microscopic, Urine URINE MICROSCOPIC (MICROSCOPIC)
[2024-11-20 16:06] LABS: Albumin Level 4.6 g/dl (3.5-5.0); Chloride 102 mmol/L (98-107)
[2024-11-20 16:07] LABS: Potassium 4.7 mmoL/L (3.5-5.1); Sodium 137 mmol/L (136-145)
[2024-11-20 16:09] LABS: Alanine Aminotransferase 23 U/L (12-78); Albumin/Globulin Ratio 1.8 (1.1-1.8); Anion Gap 11.7 mEq/L (5-15); Aspartate Amino Transferase 33 U/L (14-36); Blood Urea Nitrogen 14 mg/dl (7-17); Carbon Dioxide 28 mmol/L (22.0-30.0); Creatinine,Serum 0.80 mg/dl (0.52-1.04); Estimated Glomerular Filt Rate 73 ml/min (>60); GFR (African American) 89 ML/MIN (>60); Globulin 2.5 g/dL (1.3-3.2); Total Protein,Serum 7.1 g/dl (6.3-8.2)
[2024-11-20 16:10] LABS: Alkaline Phosphatase 82 U/L (38-126); Bilirubin,Total 0.7 mg/dl (0.2-1.3); Calcium 10.3 mg/dl (8.4-10.2); Cholesterol 282 mg/dl (140-200); Glucose 93 mg/dl (74-100); HDL Cholesterol 84 mg/dl (40-60); Iron 135 ug/dL (37-170); Magnesium 1.9 mg/dl (1.6-2.3); Phosphorous 3.9 mg/dl (2.5-4.5); Triglycerides 192 mg/dl (30-150)
[2024-11-20 16:21] LABS: Total Iron Binding Capacity 321 ug/dL (265-497)
[2024-11-20 16:27] LABS: 25-OH Vitamin D, Total 120 ng/mL (30-100)
[2024-11-20 16:42] LABS: Thyroid Stimulating Hormone 1.38 uIU/mL (0.465-4.68)
[2024-11-20 16:45] LABS: Ferritin 52.0 ng/ml (11.1-264)
[2024-11-20 16:46] LABS: Hematocrit 40.2 % (37.0-47.0); Hemoglobin 13.7 g/dL (12.2-16.2); Immature Granulocytes % 0 %; Mean Corpuscular HGB Conc 34.1 g/dL (31.8-35.4); Mean Corpuscular Hemoglobin 31.7 pg (27.0-31.2); Mean Corpuscular Volume 93.1 fl (81-99); Nucleated Red Blood Cells % 0 %; Platelet Count 148 K/mm3 (142-424); Red Blood Count 4.32 M/mm3 (4.20-5.40); Red Cell Distribution Width-SD 41.1 fL; White Blood Count 4.1 K/mm3 (4.8-10.8)
[2024-11-20 16:58] LABS: Hepatitis C Ab Qual. W/ RFX NEGATIVE (Negative)
[2024-11-20 17:15] LABS: Hemoglobin A1C 4.9 % (4.0-6.0)
[2024-11-20 17:41] LABS: Vitamin B12 989 pg/mL (239-931)
[2024-11-20 17:52] LABS: Bilirubin,Urine Negative (Negative); Color,Urine YELLOW (Yellow); Glucose,Urine (UA) Negative (Negative); Ketones,Urine Negative (Negative); Leukocyte Esterase,Urine TRACE (Negative); PH,Urine 6.5 (5.0-8.5); Protein,Urine Negative (Negative); Specific Gravity, Urine 1.020 (1.005-1.030); Urobilinogen,Urine 0.2 EU/dl (0.2)
[2024-11-20 18:27] LABS: Bacteria,Urine Trace /lpf; Calcium Oxalate Crystals,Urine 1+ /lpf; Mucus,Urine 2+ /lpf
[2024-11-20 19:26] LABS: Free T4 (Free Thyroxine) 1.31 ng/dl (0.78-2.19)
== END 2024-11-20 23:59 | disposition home or self-care (01) ==
LOC: LAB.DROPOF 11-21 13:55
PROVIDERS: PCP Nurse Practitioner Family; Visit Provider Nurse Practitioner Family
DX: K52.9 Noninfective gastroenteritis and colitis, unspecified (principal); Z80.3 Family history of malignant neoplasm of breast; Z85.3 Personal history of malignant neoplasm of breast; E78.5 Hyperlipidemia, unspecified; I10 Essential (primary) hypertension; F41.9 Anxiety disorder, unspecified; F32.A Depression, unspecified; E55.9 Vitamin D deficiency, unspecified; E53.8 Deficiency of other specified B group vitamins; Z78.0 Asymptomatic menopausal state; K21.9 Gastro-esophageal reflux disease without esophagitis; Z12.31 Encounter for screening mammogram for malignant neoplasm of breast; Z12.4 Encounter for screening for malignant neoplasm of cervix; Z12.11 Encounter for screening for malignant neoplasm of colon; Z11.59 Encounter for screening for other viral diseases; Z11.4 Encounter for screening for human immunodeficiency virus [HIV]; G47.33 Obstructive sleep apnea (adult) (pediatric); E11.9 Type 2 diabetes mellitus without complications; R41.3 Other amnesia
CPT/HCPCS: 80053; 80061; 81001; 82306; 82607; 82728; 83036; 83540; 83550; 83735; 84100; 84156; 84439; 84443; 85025; 86803; 87086; 87088; 87186; 87389

== ENCOUNTER 2024-12-19 09:45 | Outpatient (CLI) | payer BC, SELFPAY ==
[2024-12-19 17:11] LABS: 25-OH Vitamin D, Total 124 ng/mL (30-100)
[2024-12-19 20:16] LABS: Cholesterol 200 mg/dl (140-200); HDL Cholesterol 88 mg/dl (40-60); Triglycerides 76 mg/dl (30-150)
[2024-12-20 03:09] LABS: Vitamin B12 848 pg/mL (239-931)
--- OUTSIDE RECORDS SUMMARY | 2024-12-20 10:38 | XMS_ITS | Referral Summary ---
Author Organization [employer] ([place], [place], [place], [place]) Address [address] [place] [address] Care Team Providers Care Major Account Manager Name Role Phone [facility], Provider Not In The System MD Primary Care Provider Unavailable Allergies Active Allergy Reactions Criticality Noted Date Comments Codeine Hcl Anaphylaxis High 10/08/2023 Medications ergocalciferol (Vitamin D2) 1,250 mcg (50,000 unit) capsule Take 1 capsule (50,000 Units total) by mouth once a week. Active cyanocobalamin (vitamin B-12) 1000 MCG tablet Take 5 tablets (5,000 mcg total) by mouth daily. Active omeprazole (PriLOSEC) 20 MG capsule Take 1 capsule (20 mg total) by mouth daily. Active montelukast (SINGULAIR) 10 mg tablet Take 1 tablet (10 mg total) by mouth nightly. Active meloxicam (MOBIC) 15 MG tablet Take 1 tablet (15 mg total) by mouth daily. Active busPIRone (BUSPAR) 15 MG tablet Take 1 tablet (15 mg total) by mouth 2 (two) times daily. Active nitrofurantoin, macrocrystal-mo nohydrate, (MACROBID) 100 MG capsule Take 1 capsule (100 mg total) by mouth 2 (two) times daily. 14 capsule 10/09/2023 Active Active Problems Problem Noted Date Diagnosed Date Obstructive uropathy 10/08/2023 Social History Tobacco Use Types Packs/Day Years Used Date Smoking Tobacco: Never Assessed Housing Stability Vital Sign Answer Avery e Recorded In the last 12 months, was t here a time when you were not able to pay the mortgage or rent on time? No 10/08/2023 Number of Times Moved in the Last Year Not on fi le 10/08/2023 Homeless in the Last Year Not on file 2023 Utilities Answer Date Recorded In the past 12 months, has t he electric, gas, oil, or water company threatened to shut off services in your home? No 10/08/2023 Interpersonal Safety Answer Date Record ed How often does anyone, awilda chiu family and friends, physically hurt you? Never 10/08/2023 How often does anyone, awilda chiu family and friends, insult or talk down to you? Never 10/08/2023 How often does anyone, awilda chiu family and friends, threaten you with harm? Never 10/08/2023 How often does anyone, awilda chiu family and friends, scream or curse at you? Never 10/08/2023 Housing Stability Answer Date Recorded What is your living situation today? I have a [facility] place to live 10/08/[address] you li ve. Do you have problems with any of the following? None of the above 10/08/2023 Food Insecurity Answer Date Recorded Within the past 12 months, y ou worried that your food would run out before you got money to buy more. Never true 10/08/2023 Within the past 12 months, t he food you bought just didn't last and you didn't have money to get more. Never true 10/08/2023 Transportation Needs Answer Date Record ed In the past 12 months, has l ack of reliable transportation kept you from medical appointments, meetings, work or from getting things needed for daily living? No 10/08/2023 Financial Resource Strain Answer Date R ecorded How hard is it for you to pa y for the very basics like food, housing, medical care, and heating? Would you say it is: Not hard at all 10/08/2023 Employment Answer Date Recorded Do you want help finding or keeping work or a job? I do not need or want help 10/08/2023 Family and Community Support Answer Avery e Recorded If for any reason you need h elp with day-to-day activities such as bathing, preparing meals, shopping, managing finances, etc., do you get the help you need? I get all the help I need 10/08/2023 Feeling Lonely or Isolated 0 10/07 Educational Attainment Answer Date Anish rded Do you speak a language other than Lebanese at ho me? No 10/08/2023 Do you want help with school or training? For example, starting or completing job training or getting a high school diploma, GED or equivalent. No 10/08/2023 Physical Activity Answer Date Recorded Number of minutes of exercise per week 0 10/08/2023 Self Management Answer Date Recorded Because of a physical, menta l, or emotional condition, do you have serious difficulty concentrating, remembering, or making decisions? (5 years or older) No 10/08/2023 Because of a physical, menta l, or emotional condition, do you have difficulty doing errands alone such as visiting a doctor's office or shopping? (15 years or older) No 10/08/2023 Substance Use Answer Date Recorded How many times in the past y ear have you used prescription drugs for non-medical reasons? Never 10/08/2023 How many times in the past year have you used [place] legal drugs? Never 10/08/2023 Mental Health Answer Date Recorded Calculation of above two rows 1 Comments Unknown Sex and Gender Information Value Date Recorded Sex Assigned at Not on file Legal Sex Female 10:39 PM CDT Gender Identity Not on file Sexual Orientation Not on file Last Filed Vital Signs Vital Sign Reading Time Taken Comments Blood Pressure 162/72 10/09/2023 2:55 PM EDT Pulse 84 10/09/2023 2:55 PM EDT Temperature 37.3 C (99.1 F) 10/09/2023 2:55 PM EDT Respiratory Rate 16 10/09/2023 2:55 PM EDT Oxygen Saturation 96% 10/09/2023 2:55 PM EDT Inhaled Oxygen Concentration - - Weight 81.6 kg (179 lb 14.3 oz) 10/08/2023 2:21 AM EDT Height 166 cm (5' 5.35 ) 10/08/2023 2:21 AM EDT Body Mass Index 29.61 10/08/2023 2:21 AM EDT Functional Status * Are you deaf or do you have serious difficulty hearing? Answer Date of Assessment Author No 10/09/2023 2:44 PM CDT Cody Lucio lavell * Are you blind or do you have serious difficulty seeing, even when wearing glasses? Answer Date of Assessment Author No 10/09/2023 2:44 PM CDKhadijah Zavaleta * Do you have serious difficulty walking or climbing stairs? Answer Date of Assessment Author No 10/09/2023 2:44 PM CDT Escobar Khadijah monte * Do you have serious difficulty dressing or bathing? Answer Date of Assessment Author No 10/09/2023 2:44 PM CDJose CodyKhadijah * Because of a physical, mental, or emotional condition, do you have serious difficulty doing errandsalone such as visiting the doctor? Answer Date of Assessment Author No 10/09/2023 2:44 PM CDT Escobar Khadijah monte Mental Status * Because of a physical, mental, or emotional condition, do you have serious difficulty concentrating, remembering, or making decisions? (5 years old or older) Answer Entry Date Author No 10/09/2023 2:44 PM MELANY CodyKhadijah Plan of Treatment Not on file Insurance BLUE CROSS/BLUE SHIELD Advance Directives For more information, please contact: [phone] * Full Code (Latest Code Status on File) Date Activated Date Inactivated Comments 10/08/2023 1:01 AM 10/09/2023 4:57 PM -Attempt Res uscitation if person has no pulse and is not breathing. -If no pulse or not breathing attempt CPR/CODE. -Call Rapid Response if patient is in distress. Care Teams Major Account Manager Relationship Specialty Start Date End Date [facility], Provider Not In The System, [place] [address] PCP - General 10/08/23
--- OUTSIDE RECORDS SUMMARY | 2024-12-20 10:38 | XMS_ITS | Clinical Summary ---
Author Organization [employer] ([place], [place], [place], [place]) Address [address] [place] [address] Care Team Providers Care Marine Insurance Claim Examiner Name Role Phone [facility], Provider Not In The System MD [...] your living situation today? I have a [facility] place to live 10/08/2023 Think about the [...] Do you speak a language other than Tajik at ho me? No 10/08/2023 Do you [...] Mass Index 29.61 10/08/2023 2:21 AM EDT Plan of Treatment Health Maintenance Due Date Last Done Comments CT Colonography 1964 Colonoscopy 1964 Colorectal Cancer Screening 1964 FOBT/FIT 1964 Fit-DNA (Cologuard) 1964 Sigmoidoscopy 1964 Depression Screening (12+) 1976 Tobacco Cessation Counseling and Screening (12+) 1976 HIV Screening 01/12/1979 Hepatitis C Screening 01/12/1982 DTAP/TDAP/TD VACCINES (1 - Tdap) 01/12/1983 Pap Smear 01/12/1985 Breast Cancer Screening 2004 Lipid Panel 01/12/2009 Pneumococcal 50+ years (1 of 1 - PCV) 01/12/2014 Shingles Vaccine (Zoster) (1 of 2) 01/12/2014 COVID-19 VACCINE (5 - 2023-2 5 season) 2023 03/23/2022, 11/12/2021, 01/15/2021, Additional history exists Influenza Vaccine (#1) 2024 Insurance BLUE CROSS/BLUE SHIELD Advance Directives For more information, please contact: [phone] * Full Code (Latest Code Status on File) Date Activated Date Inactivated Comments 10/08/2023 1:01 AM 10/09/2023 4:57 PM -Attempt Res uscitation if person has no pulse and is not breathing. -If no pulse or not breathing attempt CPR/CODE. -Call Rapid Response if patient is in distress. Care Teams Marine Insurance Claim Examiner Relationship Specialty Start Date End Date [facility], Provider Not In The System, [place] [address] PCP - General 10/08/23
== END 2024-12-19 23:59 | disposition home or self-care (01) ==
LOC: LAB.DROPOF 12-20 10:36
PROVIDERS: PCP Nurse Practitioner Family; Visit Provider Nurse Practitioner Family
DX: E55.9 Vitamin D deficiency, unspecified (principal); M54.50 Low back pain, unspecified; R39.15 Urgency of urination; I10 Essential (primary) hypertension; E78.5 Hyperlipidemia, unspecified; E53.8 Deficiency of other specified B group vitamins; R35.0 Frequency of micturition
CPT/HCPCS: 80061; 82306; 82607; 87086; 87088; 87186

== ENCOUNTER 2024-12-25 09:13 | Outpatient (CLI) | payer BC, SELFPAY ==
--- NOTE | 2024-12-25 09:30 | XR_ITS ---
FINAL REPORT TECHNIQUE: Bone densitometry calculations of the lumbar spine and bilateral hips were obtained. CLINICAL HISTORY: postmenopausal bone loss COMPARISON: None FINDINGS: Using L1-4, the bone mineral density of the spine is 0.888 g/cm2, corresponding to T-score of -1.4 and a Z score of 0.0. This is within the range of osteopenia. Using the left hip, the bone mineral density of the femoral neck is 0.663 g/cm2, corresponding to a T-score of -1.7 and a Z-score of -0.4. This is within the range of osteopenia. Using the right hip, the bone mineral density of the femoral neck is 0.625 g/cm?, corresponding to a T-score of -2.0 and a Z-score of -0.7. This is within the range of osteopenia. NOTE: T-score: Standard deviation compared with peak bone mass of young adult mean. *Following the recommendations of the International Society of Bone densitometry, classification of hip BMD is based on the lower of two T-scores; total hip or femoral neck. IMPRESSION: 1. Bone mineral density of the lumbar spine within the range of osteopenia. 2. Bone mineral density of the bilateral femoral necks within the range of osteopenia. Reviewed, Interpreted and Dictated by Sary Gonzalez MD Transcribed by Ramona Gutierrez Authenticated and [facility]
--- NOTE | 2024-12-25 10:00 | MM_ITS ---
PROCEDURE INFORMATION: Exam: MG Bilateral Screening 3D Mammography Exam date and time: 12/25/2024 9:55 AM Age: 59 years old Clinical indication: Screening examination TECHNIQUE: Imaging protocol: Bilateral Screening tomosynthesis and 2D mammography including computer-aided detection (CAD) when performed. COMPARISON: 1. MG MM DIG SCREENING MAMM BI W/CAD 11/02/2023 9:51 AM 2. MG MM DIG SCREENING MAMM BI W/CAD 07/14/2022 2:55 PM FINDINGS: MAMMOGRAPHY: Breast composition: There are scattered areas of fibroglandular density. Mass: None. Architectural distortion: There are stable surgical changes in the left breast and left axilla.. Calcifications: No suspicious calcifications. Asymmetric density: None. Skin thickening: None. Axillary adenopathy: None. IMPRESSION: No mammographic evidence of malignancy. Annual screening is recommended unless otherwise clinically indicated. ASSESSMENT: BI-RADS Category 2: Benign.
== END 2024-12-25 23:59 | disposition home or self-care (01) ==
PROVIDERS: PCP Nurse Practitioner Family; Visit Provider Nurse Practitioner Family
DX: Z12.31 Encounter for screening mammogram for malignant neoplasm of breast (principal); M85.88 Other specified disorders of bone density and structure, other site; M85.852 Other specified disorders of bone density and structure, left thigh; M85.851 Other specified disorders of bone density and structure, right thigh; R92.323 Mammographic fibroglandular density, bilateral breasts; Z80.3 Family history of malignant neoplasm of breast; Z85.3 Personal history of malignant neoplasm of breast; K52.9 Noninfective gastroenteritis and colitis, unspecified; E78.5 Hyperlipidemia, unspecified; I10 Essential (primary) hypertension; F41.9 Anxiety disorder, unspecified; F32.A Depression, unspecified; E55.9 Vitamin D deficiency, unspecified; E53.8 Deficiency of other specified B group vitamins; Z78.0 Asymptomatic menopausal state; K21.9 Gastro-esophageal reflux disease without esophagitis; Z12.4 Encounter for screening for malignant neoplasm of cervix; Z12.11 Encounter for screening for malignant neoplasm of colon; Z11.59 Encounter for screening for other viral diseases; Z11.4 Encounter for screening for human immunodeficiency virus [HIV]; Z13.1 Encounter for screening for diabetes mellitus; Z98.890 Other specified postprocedural states
CPT/HCPCS: 77063; 77067; 77080

== ENCOUNTER 2025-01-29 13:20 | Outpatient (CLI) | payer BC, SELFPAY ==
--- OUTSIDE RECORDS SUMMARY | 2025-01-30 10:18 | XMS_ITS | Clinical Summary ---
Author Organization [employer] ([place], [place], [place], [place]) Address [address] [place] [address] Care Team Providers Care Airline Radio Operator Name Role Phone [facility], Provider Not In The System MD Primary [...] your living situation today? I have a [facility] place to live 10/08/2023 Think about [...] Do you speak a language other than [place] at ho me? No 10/08/2023 Do you [...] you used [place] legal drugs? Never 10/08/2023 Comments Unknown Sex and Gender Information Value [...] of 2) 01/12/2014 COVID-19 VACCINE (5 - 2024-2 6 season) 2024 03/23/2022, 11/12/2021, 01/15/2021, Additional history exists Influenza Vaccine (#1) 2024 Respiratory Syncytial Virus (RSV) Adult or (1 - 1-dose 75+ series) 01/12/2039 Insurance [facility] [id number] [employer]/BLUE [employer] Advance Directives For more information, please contact: [phone] * Full Code (Latest Code Status on File) Date Activated Date Inactivated Comments 10/08/2023 1:01 AM 10/09/2023 4:57 PM -Attempt Res uscitation if person has no pulse and is not breathing. -If no pulse or not breathing attempt CPR/CODE. -Call Rapid Response if patient is in distress. Care Teams Airline Radio Operator Relationship Specialty Start Date End Date [facility], Provider Not In The System, [place] [address] PCP - General 10/08/23
--- OUTSIDE RECORDS SUMMARY | 2025-01-30 10:18 | XMS_ITS | Referral Summary ---
Author Organization [employer] ([place], [place], [place], [place]) Address [address] [place] [address] Care Team Providers Care Lip Reading Teacher Name Role Phone [facility], Provider Not In The System MD [...] your living situation today? I have a [facility] place to live 10/08/2023 Think about [...] Do you speak a language other than [place] at ho me? No 10/08/2023 Do you [...] Assessment Author No 10/09/2023 2:44 PM CDT Cody, Lucio sie * Are you blind or do you have serious difficulty seeing, even when wearing glasses? Answer Date of Assessment Author No 10/09/2023 2:44 PM CDT Khadijah Cody * Do you have serious difficulty walking or climbing stairs? Answer Date of Assessment Author No 10/09/2023 2:44 PM CDT Khadijah Cody * Do you have serious difficulty dressing or bathing? Answer Date of Assessment Author No 10/09/2023 2:44 PM CDT Khdaijah Cody * Because of a physical, mental, or emotional condition, do you have serious difficulty doing errandsalone such as visiting the doctor? Answer Date of Assessment Author No 10/09/2023 2:44 PM CDT Khadijah Cody Mental Status * Because of a physical, mental, or emotional condition, do you have serious difficulty concentrating, remembering, or making decisions? (5 years old or older) Answer Entry Date Author No 10/09/2023 2:44 PM CDT Khadijah Cody Plan of Treatment Not on file Insurance BLUE CROSS/BLUE [employer] Advance Directives For more information, please contact: [phone] * Full Code (Latest Code Status on File) Date Activated Date Inactivated Comments 10/08/2023 1:01 AM 10/09/2023 4:57 PM -Attempt Res uscitation if person has no pulse and is not breathing. -If no pulse or not breathing attempt CPR/CODE. -Call Rapid Response if patient is in distress. Care Teams Lip Reading Teacher Relationship Specialty Start Date End Date [facility], Provider Not In The System, [place] [address] PCP - General 10/08/23
== END 2025-01-29 23:59 ==
LOC: LAB.DROPOF 01-30 10:00
PROVIDERS: PCP Nurse Practitioner Family; Visit Provider Nurse Practitioner Family
DX: R82.90 Unspecified abnormal findings in urine (principal)
CPT/HCPCS: 87086; 87088

== ENCOUNTER 2025-03-27 14:30 | Outpatient (CLI) | payer BC, SELFPAY ==
[2025-03-27 16:45] LABS: Coronavirus 19, PCR Not Detected (NotDetected); Influenza A, PCR Not Detected (NotDetected); Influenza B, PCR Not Detected (NotDetected)
== END 2025-03-27 23:59 | disposition home or self-care (01) ==
LOC: LAB.DROPOF 03-28 13:56
PROVIDERS: PCP Nurse Practitioner Family; Visit Provider Nurse Practitioner Family
DX: J39.2 Other diseases of pharynx (principal); R53.83 Other fatigue; R51.9 Headache, unspecified; R05.8 Other specified cough; H93.8X3 Other specified disorders of ear, bilateral; N39.0 Urinary tract infection, site not specified
CPT/HCPCS: 87086; 87088; 87186; 87631